=== PATIENT | female | born 1965 | race Caucasian/White ===

== ENCOUNTER 2016-09-24 12:56 | Inpatient (IN) | payer MEDICAID ==
[~2016-09-24] VITALS: Ht 182.9 cm; Wt 56.6 kg
[~2016-09-24 12:56] MED LIST: ALBUAER3 IN; DIVA500T7 PO; OXYB15TA12 PO; PROP60CA8 PO; TOPI100T68 PO
[2016-09-24 15:01] LABS: Basophils # (auto) 0 uL; Basophils % (auto) 0.3 % (0.0-2.0); Eosinophils # (auto) 0 uL; Eosinophils % (auto) 0.3 % (0.0-7.0); Hematocrit 35.8 % (36.0-46.0); Hemoglobin 12.1 g/dL (12.2-16.2); Lymphocytes # (auto) 0.8 uL; Lymphocytes % (auto) 14.8 % (10.0-50.0); Mean Corpuscular Hemoglobin 31.1 pg (28.0-32.0); Mean Corpuscular Hgb Conc. 33.7 g/dL (32.0-36.0); Mean Corpuscular Volume 92.3 fL (80.0-100.0); Monocytes # (auto) 0.8 uL; Monocytes % (auto) 15.2 % (0.0-12.0); Neutrophils # (auto) 3.8 uL; Neutrophils % (auto) 69.4 % (37.0-80.0); Platelet Count (auto) 216 10^3/uL (140-450); Red Cell Distribution Width 13.1 % (11.6-16.0); White Blood Cell 5.5 10^3/uL (4.4-10.8)
[2016-09-24 15:15] LABS: Albumin 3.3 g/dL (3.4-5.0); BUN/Creatinine Ratio 26.7; Bilirubin, Total 0.4 mg/dL (0.2-1.0); Calcium 8.6 mg/dL (8.5-10.1); Potassium 3.5 mmol/L (3.5-5.1); Total Protein 7.5 g/dL (6.4-8.2)
[2016-09-24] MEDS ORDERED: SODIUM CHLORIDE 0.9% 1,000 ML IV ONE (18:15)
[2016-09-24 18:48] LABS: Urine Bilirubin Negative (Negative); Urine Blood Negative /uL (Negative); Urine Color Yellow (Yellow); Urine Glucose Normal (Normal); Urine Ketone Negative (Negative); Urine Mucus FEW (None Seen); Urine Nitrite Negative (Negative); Urine RBC 11 /hpf (0 - 4); Urine Squamous Epithelial Cell FEW /hpf (<5); Urine Urobilinogen >12.0 mg/dL (Negative); Urine pH 8.5 (5.0-8.0)
[2016-09-24] MEDS ORDERED: ALBUTEROL SULF 2.5 MG/0.5ML(0.5%) NEB SOLN NEB ONE (19:00)
[2016-09-24] MEDS ORDERED: cefTRIAXone 1GM/50ML D5W 50 ML IV ONE (19:00)
[2016-09-24] MEDS ORDERED: methylPREDNISolone SOD SUCC 125 MG/2 ML VL IV ONE (19:00)
[2016-09-24] MEDS ORDERED: IPRATROPIUM BROM 0.5 MG/2.5ML INH SOL NEB ONE (19:00)
[2016-09-24] MEDS ORDERED: TEMAZEPAM 15 MG CAP PO PRN (21:45)
[2016-09-24] MEDS: SODIUM CHLORIDE 0.9% 1,000 ML IV SCH (21:47)
[2016-09-24] MEDS: PROPRANOLOL HCL 20 MG TAB PO SCH (22:00)
[2016-09-24] MEDS: IPRATROPIUM BROM 0.5 MG/2.5ML INH SOL NEB SCH (22:00)
[2016-09-24] MEDS: ALBUTEROL SULF 2.5 MG/0.5ML(0.5%) NEB SOLN NEB SCH (22:00)
[2016-09-24] MEDS ORDERED: NITROGLYCERIN 0.4 MG SL TAB SL PRN (22:00)
[2016-09-24] MEDS ORDERED: MORPHINE SULF INJ 2 MG/ML SYRINGE 1ML IV PRN (22:00)
[2016-09-24] MEDS ORDERED: LACTULOSE 20Gm/30ML SOLN PO PRN (22:00)
[2016-09-24] MEDS ORDERED: HYDROcodone-ACET 5/325MG TAB PO ONE (22:45)
[2016-09-25] VITALS (7 sets, daily range): BP systolic 92–106; BP diastolic 48–67
[2016-09-25] MEDS: IPRATROPIUM BROM 0.5 MG/2.5ML INH SOL NEB SCH ×6 (02:15→22:15)
[2016-09-25] MEDS: ALBUTEROL SULF 2.5 MG/0.5ML(0.5%) NEB SOLN NEB SCH ×6 (02:16→22:15)
[2016-09-25] MEDS: PRIMIDONE 50 MG TAB PO SCH ×2 (02:30→22:31)
[2016-09-25] MEDS: OXYBUTYNIN CHL 5 MG TAB PO SCH ×3 (02:31→22:33)
[2016-09-25] MEDS: TOPIRAMATE 100 MG TAB PO SCH ×3 (02:31→22:33)
[2016-09-25 05:27] LABS: Basophils # (auto) 0 uL; Basophils % (auto) 0.3 % (0.0-2.0); Eosinophils # (auto) 0 uL; Hematocrit 31.7 % (36.0-46.0); Hemoglobin 10.7 g/dL (12.2-16.2); Lymphocytes # (auto) 0.4 uL; Lymphocytes % (auto) 12.5 % (10.0-50.0); Mean Corpuscular Hemoglobin 30.9 pg (28.0-32.0); Mean Corpuscular Hgb Conc. 33.6 g/dL (32.0-36.0); Mean Corpuscular Volume 91.9 fL (80.0-100.0); Mean Platelet Volume 6.9 fL (7.4-10.4); Monocytes # (auto) 0.2 uL; Monocytes % (auto) 4.4 % (0.0-12.0); Neutrophils % (auto) 82.8 % (37.0-80.0); Platelet Count (auto) 165 10^3/uL (140-450); Red Cell Distribution Width 13.1 % (11.6-16.0); White Blood Cell 3.6 10^3/uL (4.4-10.8)
[2016-09-25 05:44] LABS: Albumin 2.9 g/dL (3.4-5.0); BUN/Creatinine Ratio 23.1; Bilirubin, Total 0.4 mg/dL (0.2-1.0); Calcium 8.5 mg/dL (8.5-10.1); Potassium 3.5 mmol/L (3.5-5.1); Total Protein 6.7 g/dL (6.4-8.2)
[2016-09-25] MEDS: SODIUM CHLORIDE 0.9% 1,000 ML IV SCH (06:00)
[2016-09-25] MEDS ORDERED: PRIMIDONE 50 MG TAB PO ONE (06:45)
[2016-09-25] MEDS ORDERED: PROP60CA8 PO (06:51)
[2016-09-25] MEDS ORDERED: INFLUENZA QUAD 2016-2017 0.5 ML SYRG IM ONE (08:15)
[2016-09-25] MEDS ORDERED: PNEUMOCOCCAL VACC POLYS 25 MCG/0.5 ML VIAL IM ONE (08:15)
[2016-09-25] MEDS: cefTRIAXone 1GM/50ML D5W 50 ML IV SCH (09:00)
[2016-09-25] MEDS: ENOXAPARIN SOD 40 MG/0.4 ML SYRINGE SC SCH (09:13)
[2016-09-25] MEDS: PANTOPRAZOLE 40 MG TAB PO SCH (09:14)
[2016-09-25] MEDS: FLUoxetine HCL 20 MG CAP PO SCH ×2 (09:14→22:32)
[2016-09-25] MEDS: PROPRANOLOL HCL 20 MG TAB PO SCH ×2 (09:15→22:31)
[2016-09-25] MEDS ORDERED: FLUoxetine HCL 20 MG CAP PO SCH (10:00)
[2016-09-25] MEDS ORDERED: methylPREDNISolone SOD SUCC 125 MG/2 ML VL IV SCH (10:00)
[2016-09-25] MEDS ORDERED: ENOXAPARIN SOD 30 MG/0.3 ML SYRINGE SC SCH (10:00)
[2016-09-25] MEDS ORDERED: TOPIRAMATE 100 MG TAB PO ONE (10:00)
[2016-09-25] MEDS ORDERED: PANTOPRAZOLE SODIUM 40 MG/10 ML VIAL IV SCH (10:00)
[2016-09-25] MEDS: HYDROcodone-ACET 5/325MG TAB PO PRN ×3 (10:25→22:32)
[2016-09-25] MEDS ORDERED: PROPRANOLOL HCL 20 MG TAB PO ONE (14:00)
[2016-09-25] MEDS: methylPREDNISolone SOD SUCC 125 MG/2 ML VL IV SCH (17:30)
[2016-09-25] MEDS ORDERED: TEMAZEPAM 15 MG CAP PO ONE (22:00)
[2016-09-25] MEDS ORDERED: MIRTAZAPINE 30 MG TAB PO SCH (22:00)
[2016-09-25] MEDS: BUDESONIDE (INHALATION) 0.5 MG/2 ML NEB NEB SCH (22:15)
[2016-09-26] MEDS: methylPREDNISolone SOD SUCC 125 MG/2 ML VL IV SCH ×4 (00:40→17:53)
[2016-09-26] MEDS: ALBUTEROL SULF 2.5 MG/0.5ML(0.5%) NEB SOLN NEB SCH ×5 (02:36→19:23)
[2016-09-26] MEDS: IPRATROPIUM BROM 0.5 MG/2.5ML INH SOL NEB SCH ×5 (02:36→19:23)
[2016-09-26 05:00] VITALS: BP 115/47
[2016-09-26] MEDS: HYDROcodone-ACET 5/325MG TAB PO PRN ×2 (06:36→12:23)
[2016-09-26] MEDS: cefTRIAXone 1GM/50ML D5W 50 ML IV SCH (08:57)
[2016-09-26] MEDS: ENOXAPARIN SOD 40 MG/0.4 ML SYRINGE SC SCH (09:28)
[2016-09-26] MEDS: OXYBUTYNIN CHL 5 MG TAB PO SCH (09:35)
[2016-09-26] MEDS: FLUoxetine HCL 20 MG CAP PO SCH (09:35)
[2016-09-26] MEDS: TOPIRAMATE 100 MG TAB PO SCH (09:35)
[2016-09-26] MEDS: PANTOPRAZOLE 40 MG TAB PO SCH (09:35)
[2016-09-26] MEDS: PROPRANOLOL HCL 20 MG TAB PO SCH (10:00)
[2016-09-26] MEDS: BUDESONIDE (INHALATION) 0.5 MG/2 ML NEB NEB SCH (10:04)
[2016-09-26 12:47] VITALS: BP 94/57
[2016-09-26 16:59] VITALS: BP 126/69
[2016-09-26 17:00] VITALS: BP 96/64
== END 2016-09-26 20:05 | disposition home or self-care (01) | DRG 140 ==
LOC: ER 12:59 → TELE 13:00 → ER 18:32 → TELE-WESTW 23:15
PROVIDERS: ADMIT Family Medicine; ATTEND Hospitalist
DX: J44.0 Chronic obstructive pulmonary disease with (acute) lower respiratory infection (principal); J18.9 Pneumonia, unspecified organism; I10 Essential (primary) hypertension; F41.9 Anxiety disorder, unspecified; F32.9 Major depressive disorder, single episode, unspecified; E86.0 Dehydration; F17.210 Nicotine dependence, cigarettes, uncomplicated; G40.909 Epilepsy, unspecified, not intractable, without status epilepticus; J20.9 Acute bronchitis, unspecified; J44.1 Chronic obstructive pulmonary disease with (acute) exacerbation; Z82.49 Family history of ischemic heart disease and other diseases of the circulatory system; Z90.49 Acquired absence of other specified parts of digestive tract; Z98.890 Other specified postprocedural states; Z23 Encounter for immunization
CPT/HCPCS: 36415; 71010; 71020; 80053; 80061; 80320; 81001; 82962; 84484; 85025; 87040; 87400; 93005; 94640; 99291; G0434; J0696

== ENCOUNTER 2016-12-22 12:34 | Emergency (ER) | payer MEDICAID ==
[~2016-12-22] VITALS: Ht 182.9 cm; Wt 78.9 kg
[2016-12-22] MEDS ORDERED: LORazepam 2MG/ML-1ML VIAL IV ONE (15:45)
[2016-12-22] MEDS ORDERED: SODIUM CHLORIDE 0.9% 1,000 ML IV ONE (16:00)
[2016-12-22 16:06] LABS: Hematocrit 38.6 % (36.0-46.0); Mean Corpuscular Hemoglobin 29.8 pg (28.0-32.0); Mean Corpuscular Hgb Conc. 33.8 g/dL (32.0-36.0); Mean Corpuscular Volume 88.2 fL (80.0-100.0); Mean Platelet Volume 9.5 fL (7.4-10.4); Platelet Count (auto) 136 10^3/uL (140-450); Red Cell Distribution Width 15.1 % (11.6-16.0); SUSPECT VIEW TRANSMISSION
[2016-12-22 16:23] LABS: Albumin 3.5 g/dL (3.4-5.0); BUN/Creatinine Ratio 33.3; Calcium 8.8 mg/dL (8.5-10.1); Potassium 3.8 mmol/L (3.5-5.1)
[2016-12-22 16:26] LABS: Bilirubin, Total 0.4 mg/dL (0.2-1.0); Total Protein 6.8 g/dL (6.4-8.2)
[2016-12-22 16:54] LABS: Metamyelocytes % 0; Myelocytes % 0; Promyelocytes % 0; Reactive Lymphocytes 0
[2016-12-22 17:36] VITALS: BP 123/78
[2016-12-22 18:54] LABS: Platelet Estimate Decreased
[2016-12-22 18:55] LABS: RBC Morphology Normal
== END 2016-12-22 17:45 | disposition left against medical advice (07) ==
LOC: ER 12:35
DX: G40.909 Epilepsy, unspecified, not intractable, without status epilepticus (principal); F17.210 Nicotine dependence, cigarettes, uncomplicated; J44.9 Chronic obstructive pulmonary disease, unspecified; I10 Essential (primary) hypertension
CPT/HCPCS: 36415; 70450; 80053; 80164; 85007; 85027; 96361; 96374; 99285; J2060; J7030

== ENCOUNTER 2016-12-23 19:08 | Emergency (ER) | payer MEDICAID ==
[~2016-12-23] VITALS: Ht 182.9 cm; Wt 77.1 kg
[2016-12-23 21:53] LABS: Albumin 3.5 g/dL (3.4-5.0); BUN/Creatinine Ratio 35.1; Calcium 8.6 mg/dL (8.5-10.1); Potassium 3.3 mmol/L (3.5-5.1)
[2016-12-23 21:56] LABS: Bilirubin, Total 0.5 mg/dL (0.2-1.0); Total Protein 7.1 g/dL (6.4-8.2)
[2016-12-23 22:00] LABS: Basophils # (auto) 0 uL; Basophils % (auto) 0.5 % (0.0-2.0); Eosinophils # (auto) 0 uL; Eosinophils % (auto) 1.2 % (0.0-7.0); Hematocrit 38.5 % (36.0-46.0); Hemoglobin 12.7 g/dL (12.2-16.2); Lymphocytes # (auto) 1.7 uL; Lymphocytes % (auto) 49.9 % (10.0-50.0); Mean Platelet Volume 8.9 fL (7.4-10.4); Monocytes # (auto) 0.3 uL; Monocytes % (auto) 8.9 % (0.0-12.0); Neutrophils # (auto) 1.4 uL; Neutrophils % (auto) 39.5 % (37.0-80.0); Platelet Count (auto) 113 10^3/uL (140-450); Red Cell Distribution Width 14.6 % (11.6-16.0); White Blood Cell 3.5 10^3/uL (4.4-10.8)
[2016-12-24] MEDS ORDERED: SODIUM CHLORIDE 0.9% 1,000 ML IV ONE (07:14)
[2016-12-24] MEDS ORDERED: ACETAMINOPHEN 500 MG TAB PO ONE (07:15)
[2016-12-24 10:41] VITALS: BP 114/72
== END 2016-12-24 11:48 | disposition home or self-care (01) ==
LOC: ER 19:10
DX: G40.909 Epilepsy, unspecified, not intractable, without status epilepticus (principal); J44.9 Chronic obstructive pulmonary disease, unspecified; I10 Essential (primary) hypertension; R42 Dizziness and giddiness; R53.1 Weakness; F17.210 Nicotine dependence, cigarettes, uncomplicated; E87.6 Hypokalemia; Z91.14 Patient's other noncompliance with medication regimen; Z90.49 Acquired absence of other specified parts of digestive tract
CPT/HCPCS: 36415; 80053; 80164; 83735; 85025; 96360; 99284; J7030

== ENCOUNTER → 2016-12-23 | Emergency (ER) | payer MEDICAID ==
[~2016-12-23] VITALS: Ht 185.4 cm; Wt 77.1 kg
[2016-12-23 10:55] VITALS: BP 109/60
[2016-12-23 11:23] LABS: Basophils # (auto) 0 uL; Basophils % (auto) 0.4 % (0.0-2.0); Eosinophils # (auto) 0 uL; Eosinophils % (auto) 0.9 % (0.0-7.0); Lymphocytes # (auto) 1.3 uL; Lymphocytes % (auto) 36.9 % (10.0-50.0); Mean Corpuscular Hemoglobin 29.4 pg (28.0-32.0); Mean Corpuscular Hgb Conc. 33.3 g/dL (32.0-36.0); Mean Corpuscular Volume 88.5 fL (80.0-100.0); Mean Platelet Volume 8.4 fL (7.4-10.4); Monocytes # (auto) 0.3 uL; Monocytes % (auto) 8.3 % (0.0-12.0); Neutrophils # (auto) 1.9 uL; Neutrophils % (auto) 53.5 % (37.0-80.0); Platelet Count (auto) 115 10^3/uL (140-450); Red Cell Distribution Width 14.9 % (11.6-16.0); White Blood Cell 3.5 10^3/uL (4.4-10.8)
[2016-12-23 11:45] LABS: Albumin 3.7 g/dL (3.4-5.0); BUN/Creatinine Ratio 30.9; Bilirubin, Total 0.3 mg/dL (0.2-1.0); Calcium 8.8 mg/dL (8.5-10.1); Magnesium 2.1 mg/dL (1.6-2.6); Potassium 3.8 mmol/L (3.5-5.1); Total Protein 7.5 g/dL (6.4-8.2)
== END | disposition left against medical advice (07) ==
LOC: ER 10:50
DX: R56.9 Unspecified convulsions (principal); Z53.21 Procedure and treatment not carried out due to patient leaving prior to being seen by health care provider
CPT/HCPCS: 36415; 80053; 83735; 85025

== ENCOUNTER 2016-12-24 19:54 | Inpatient (IN) | payer MEDICAID ==
[~2016-12-24] VITALS: Ht 167.6 cm; Wt 68.2 kg
[2016-12-24 20:33] LABS: Basophils # (auto) 0 uL; Basophils % (auto) 0.8 % (0.0-2.0); DEFINITIVE VIEW TRANSMISSION; Eosinophils # (auto) 0.1 uL; Eosinophils % (auto) 1.8 % (0.0-7.0); Hematocrit 36.3 % (36.0-46.0); Lymphocytes # (auto) 1.5 uL; Lymphocytes % (auto) 54.7 % (10.0-50.0); Mean Corpuscular Hemoglobin 29.4 pg (28.0-32.0); Mean Corpuscular Hgb Conc. 33.2 g/dL (32.0-36.0); Mean Corpuscular Volume 88.7 fL (80.0-100.0); Mean Platelet Volume 8.5 fL (7.4-10.4); Monocytes # (auto) 0.3 uL; Monocytes % (auto) 11.6 % (0.0-12.0); Neutrophils # (auto) 0.9 uL; Neutrophils % (auto) 31.1 % (37.0-80.0); Platelet Count (auto) 107 10^3/uL (140-450); Red Cell Distribution Width 14.7 % (11.6-16.0); White Blood Cell 2.8 10^3/uL (4.4-10.8)
[2016-12-24 20:59] LABS: Albumin 3.3 g/dL (3.4-5.0); Alkaline Phosphatase 87 U/L (45-117); Anion Gap 7 (5-15); Aspartate Aminotransferase 104 U/L (15-37); BUN/Creatinine Ratio 20.5; Bilirubin, Total 0.3 mg/dL (0.2-1.0); Blood Urea Nitrogen 18 mg/dL (7-18); Calcium 8.4 mg/dL (8.5-10.1); Carbon Dioxide 24 mmol/L (21-32); Chloride 117 mmol/L (98-107); GFR African American 87 mL/min; GFR Non-African American 72 mL/min; Glucose 101 mg/dL (74-106); Magnesium 2.1 mg/dL (1.6-2.6); Potassium 3.5 mmol/L (3.5-5.1); Sodium 148 mmol/L (136-145); Total Protein 6.5 g/dL (6.4-8.2)
[2016-12-24] MEDS ORDERED: SODIUM CHLORIDE 0.9% 1,000 ML IVB ONE (21:00)
[2016-12-25 05:19] LABS: Urine Bilirubin Negative (Negative); Urine Blood Negative /uL (Negative); Urine Color Yellow (Yellow); Urine Glucose Normal (Normal); Urine Ketone Negative (Negative); Urine Mucus FEW (None Seen); Urine Nitrite Negative (Negative); Urine RBC 2 /hpf (0 - 4)
[2016-12-25] MEDS ORDERED: ALBUTEROL SULF 2.5 MG/0.5ML(0.5%) NEB SOLN NEB PRN (05:45)
[2016-12-25] MEDS ORDERED: ONDANSETRON HCL 4 MG/2 ML VIAL IV PRN (05:45)
[2016-12-25] MEDS ORDERED: ACETAMINOPHEN 325 MG TAB PO PRN (05:45)
[2016-12-25] MEDS ORDERED: TEMAZEPAM 15 MG CAP PO PRN (05:45)
[2016-12-25] MEDS: D5W/SOD CHL 0.45% 1,000 ML IV SCH (05:58)
[2016-12-25] MEDS: PROPRANOLOL HCL 20 MG TAB PO SCH ×3 (06:02→21:49)
[2016-12-25 09:00] VITALS: BP 110/66
[2016-12-25] MEDS: ENOXAPARIN SOD 40 MG/0.4 ML SYRINGE SC SCH (10:00)
[2016-12-25] MEDS: FAMOTIDINE 20 MG TAB PO SCH ×2 (12:41→21:51)
[2016-12-25] MEDS: FLUoxetine HCL 20 MG CAP PO SCH (12:41)
[2016-12-25] MEDS: TOPIRAMATE 100 MG TAB PO SCH ×2 (12:41→21:51)
[2016-12-25 13:00] VITALS: BP 117/53
[2016-12-25] MEDS: HYDROcodone-ACET 5/325MG TAB PO PRN (13:27)
[2016-12-25 17:00] VITALS: BP 102/67
[2016-12-25 20:59] VITALS: BP 102/67
[2016-12-26] MEDS: D5W/SOD CHL 0.45% 1,000 ML IV SCH (00:17)
[2016-12-26] MEDS: HYDROcodone-ACET 5/325MG TAB PO PRN (02:46)
[2016-12-26 05:00] VITALS: BP 93/59
[2016-12-26] MEDS: PROPRANOLOL HCL 20 MG TAB PO SCH ×2 (06:00→14:00)
[2016-12-26 06:18] LABS: Basophils # (auto) 0 uL; Basophils % (auto) 0.4 % (0.0-2.0); Eosinophils # (auto) 0 uL; Eosinophils % (auto) 0.5 % (0.0-7.0); Hematocrit 34.3 % (36.0-46.0); Hemoglobin 11.4 g/dL (12.2-16.2); Lymphocytes # (auto) 1.6 uL; Lymphocytes % (auto) 30.1 % (10.0-50.0); Mean Corpuscular Hemoglobin 29.4 pg (28.0-32.0); Mean Corpuscular Hgb Conc. 33.3 g/dL (32.0-36.0); Mean Corpuscular Volume 88.5 fL (80.0-100.0); Monocytes # (auto) 0.7 uL; Monocytes % (auto) 12.8 % (0.0-12.0); Neutrophils % (auto) 56.2 % (37.0-80.0); Platelet Count (auto) 105 10^3/uL (140-450); Red Cell Distribution Width 14.8 % (11.6-16.0); White Blood Cell 5.4 10^3/uL (4.4-10.8)
[2016-12-26 06:53] LABS: Albumin 2.8 g/dL (3.4-5.0); BUN/Creatinine Ratio 19.1; Bilirubin, Total 0.6 mg/dL (0.2-1.0); Calcium 8.1 mg/dL (8.5-10.1); Magnesium 1.9 mg/dL (1.6-2.6); Phosphorus 2.6 mg/dL (2.5-4.90); Potassium 3.4 mmol/L (3.5-5.1); Total Protein 6.1 g/dL (6.4-8.2)
[2016-12-26 08:00] VITALS: BP 92/47
[2016-12-26 09:07] VITALS: BP 92/47
[2016-12-26] MEDS: FAMOTIDINE 20 MG TAB PO SCH (09:58)
[2016-12-26] MEDS: TOPIRAMATE 100 MG TAB PO SCH (09:58)
[2016-12-26] MEDS: ENOXAPARIN SOD 40 MG/0.4 ML SYRINGE SC SCH (09:58)
[2016-12-26] MEDS: FLUoxetine HCL 20 MG CAP PO SCH (09:58)
[2016-12-26 12:40] VITALS: BP 117/76
[2016-12-26] MEDS ORDERED: TOPI25TA84 PO (15:59)
[2016-12-26 16:09] VITALS: BP 117/76
[2016-12-26 16:33] VITALS: BP 117/64
== END 2016-12-26 18:50 | disposition home health service (06) | DRG 53 ==
LOC: EDBD 19:54 → ER 19:59 → OVERFLOW 20:00 → CENTRAL 12-25 09:00
PROVIDERS: ADMIT Nurse Practitioner; ATTEND Internal Medicine
DX: G40.909 Epilepsy, unspecified, not intractable, without status epilepticus (principal); G92 Toxic encephalopathy; E87.0 Hyperosmolality and hypernatremia; D69.6 Thrombocytopenia, unspecified; D50.9 Iron deficiency anemia, unspecified; F17.210 Nicotine dependence, cigarettes, uncomplicated; I10 Essential (primary) hypertension; F32.9 Major depressive disorder, single episode, unspecified; J44.9 Chronic obstructive pulmonary disease, unspecified; E16.2 Hypoglycemia, unspecified; Z91.19 Patient's noncompliance with other medical treatment and regimen; D53.9 Nutritional anemia, unspecified; Z80.3 Family history of malignant neoplasm of breast; Z82.49 Family history of ischemic heart disease and other diseases of the circulatory system; F41.9 Anxiety disorder, unspecified; Z90.49 Acquired absence of other specified parts of digestive tract; Z80.9 Family history of malignant neoplasm, unspecified; Z88.6 Allergy status to analgesic agent; Z88.8 Allergy status to other drugs, medicaments and biological substances; R32 Unspecified urinary incontinence
CPT/HCPCS: 36415; 51702; 70450; 70551; 71010; 80053; 80164; 80320; 81001; 82962; 83735; 84100; 84484; 84702; 85025; 93005; 94761; 96360; G0434

== ENCOUNTER 2017-03-21 18:53 | Emergency (ER) | payer MEDICAID ==
[~2017-03-21] VITALS: Ht 182.9 cm; Wt 90.7 kg
[~2017-03-21 18:53] MED LIST changes: -TOPI100T68 PO; +TOPI25TA84 PO
[2017-03-21 22:47] LABS: Basophils # (auto) 0 uL; Basophils % (auto) 0.5 % (0.0-2.0); CONDITION Y; Eosinophils # (auto) 0 uL; Eosinophils % (auto) 0.2 % (0.0-7.0); Hematocrit 43.5 % (36.0-46.0); Hemoglobin 14.5 g/dL (12.2-16.2); Lymphocytes # (auto) 2.2 uL; Lymphocytes % (auto) 34.5 % (10.0-50.0); Mean Corpuscular Hemoglobin 29.8 pg (28.0-32.0); Mean Corpuscular Hgb Conc. 33.4 g/dL (32.0-36.0); Mean Corpuscular Volume 89.4 fL (80.0-100.0); Mean Platelet Volume 8.9 fL (7.4-10.4); Monocytes # (auto) 0.7 uL; Monocytes % (auto) 10.3 % (0.0-12.0); Neutrophils # (auto) 3.5 uL; Neutrophils % (auto) 54.5 % (37.0-80.0); Platelet Count (auto) 145 10^3/uL (140-450); Red Cell Distribution Width 16.1 % (11.6-16.0); White Blood Cell 6.4 10^3/uL (4.4-10.8)
[2017-03-21 23:09] LABS: Albumin 3.6 g/dL (3.4-5.0); BUN/Creatinine Ratio 26.4; Calcium 9.2 mg/dL (8.5-10.1); Potassium 5.1 mmol/L (3.5-5.1)
[2017-03-21 23:12] LABS: Bilirubin, Total 0.6 mg/dL (0.2-1.0); Total Protein 7.7 g/dL (6.4-8.2)
[2017-03-22 05:53] VITALS: BP 88/52
== END 2017-03-22 06:10 | disposition home or self-care (01) ==
LOC: ER 18:55
DX: S93.401A Sprain of unspecified ligament of right ankle, initial encounter (principal); I10 Essential (primary) hypertension; F17.210 Nicotine dependence, cigarettes, uncomplicated; Z90.49 Acquired absence of other specified parts of digestive tract; Z88.2 Allergy status to sulfonamides; W19.XXXA Unspecified fall, initial encounter; Y93.89 Activity, other specified; Y99.8 Other external cause status; Y92.89 Other specified places as the place of occurrence of the external cause
CPT/HCPCS: 36415; 73610; 80053; 85025

== ENCOUNTER 2017-09-20 17:49 | Inpatient (IN) | payer MEDICAID ==
[~2017-09-20] VITALS: Ht 185.4 cm; Wt 77.6 kg
[2017-09-20 21:06] LABS: Alanine Aminotransferase 39 U/L (13-56); Albumin 3.5 g/dL (3.4-5.0); Anion Gap 6 (5-15); Aspartate Aminotransferase 40 U/L (15-37); BUN/Creatinine Ratio 30.6; Blood Urea Nitrogen 30 mg/dL (7-18); Calcium 8.8 mg/dL (8.5-10.1); Carbon Dioxide 29 mmol/L (21-32); Chloride 108 mmol/L (98-107); GFR African American 76 mL/min; GFR Non-African American 63 mL/min; Glucose 107 mg/dL (74-106); Potassium 3.9 mmol/L (3.5-5.1); Sodium 143 mmol/L (136-145)
[2017-09-20 21:08] LABS: Basophils # (auto) 0 uL; Basophils % (auto) 0.6 % (0.0-2.0); Eosinophils # (auto) 0.1 uL; Eosinophils % (auto) 1.1 % (0.0-7.0); Hematocrit 41.4 % (36.0-46.0); Hemoglobin 13.9 g/dL (12.2-16.2); Lymphocytes # (auto) 1.8 uL; Lymphocytes % (auto) 32.9 % (10.0-50.0); Mean Corpuscular Hgb Conc. 33.7 g/dL (32.0-36.0); Mean Corpuscular Volume 92.2 fL (80.0-100.0); Monocytes # (auto) 0.7 uL; Monocytes % (auto) 12.7 % (0.0-12.0); Neutrophils # (auto) 2.9 uL; Neutrophils % (auto) 52.7 % (37.0-80.0); Nucleated Red Blood Cells % 0.1 %; Platelet Count (auto) 173 10^3/uL (140-450); Red Blood Cells 4.49 10^6/uL (4.0-5.20); Red Cell Distribution Width 14.8 % (11.8-14.3); White Blood Cell 5.5 10^3/uL (4.4-10.8)
[2017-09-20 21:11] LABS: Alkaline Phosphatase 74 U/L (45-117); Bilirubin, Total 0.4 mg/dL (0.2-1.0); Total Protein 7.2 g/dL (6.4-8.2)
[2017-09-21] MEDS ORDERED: cefTRIAXone 1GM/10ml IVPUSH 10 ML IV ONE (05:00)
[2017-09-21] MEDS ORDERED: VANCOMYCIN 1GM/250ML 250 ML IV ONE (05:00)
[2017-09-21] MEDS ORDERED: SODIUM CHLORIDE 0.9% 1,000 ML IV ONE (05:00)
[2017-09-21 06:21] LABS: Urine Bacteria NONE SEEN /hpf (None Seen); Urine Blood Negative /uL (Negative); Urine Mucus MANY (None Seen); Urine Specific Gravity 1.028 (1.001-1.035); Urine WBC 152 /hpf (0 - 5)
[2017-09-21 06:34] LABS: Alcohol, Urine < 3.0 mg/dL (0-5); Amphetamine Screen, Urine POSITIVE (NEGATIVE); Barbiturate Scree,Urine POSITIVE (NEGATIVE); Benzodiazephine Screen, Urine NEGATIVE (NEGATIVE); Cannabinoid Screen, Urine NEGATIVE (NEGATIVE); Cocaine Screen, Urine POSITIVE (NEGATIVE); Opiate Scree,Urine NEGATIVE (NEGATIVE); Phencyclidine Screen, Urine NEGATIVE (NEGATIVE)
[2017-09-21] MEDS ORDERED: HYDROcodone-ACET 5/325MG TAB PO PRN (07:15)
[2017-09-21] MEDS ORDERED: LORazepam 2MG/ML-1ML VIAL IV PRN (07:15)
[2017-09-21] MEDS ORDERED: SODIUM CHLORIDE 0.9% 1,000 ML IV SCH ×2 (07:15→11:45)
[2017-09-21] MEDS ORDERED: VANCOMYCIN PER PHARMACY 0 MG IV SCH (07:15)
[2017-09-21] MEDS ORDERED: ACETAMINOPHEN 500 MG TAB PO PRN (07:15)
[2017-09-21] MEDS ORDERED: VANCOMYCIN 1GM/250ML 250 ML IV SCH ×2 (08:00→18:00)
[2017-09-21 09:24] LABS: Albumin 3.1 g/dL (3.4-5.0); BUN/Creatinine Ratio 32.6; Bilirubin, Total 0.3 mg/dL (0.2-1.0); Total Protein 6.3 g/dL (6.4-8.2)
[2017-09-21] MEDS ORDERED: TOPIRAMATE 100 MG TAB PO SCH (10:00)
[2017-09-21] MEDS: FLUoxetine HCL 20 MG CAP PO SCH (10:11)
[2017-09-21] MEDS ORDERED: LORazepam 2MG/ML-1ML VIAL ONE (10:48)
[2017-09-21 18:52] VITALS: BP 106/67
[2017-09-21] MEDS ORDERED: PNEUMOCOCCAL VACC POLYS 25 MCG/0.5 ML VIAL IM ONE (22:00)
[2017-09-21] MEDS ORDERED: INFLUENZA QUAD 2017-2018 0.5 ML SYRG IM ONE (22:00)
[2017-09-21] MEDS: TOPIRAMATE 100 MG TAB PO SCH (22:17)
[2017-09-21] MEDS: PROPRANOLOL HCL 20 MG TAB PO SCH (22:18)
[2017-09-21] MEDS: MIRTAZAPINE 30 MG TAB PO SCH (22:19)
[2017-09-21] MEDS: chlordiazePOXIDE HCL 5 MG CAP PO SCH (22:19)
[2017-09-21 22:35] VITALS: BP 115/72
[2017-09-22] MEDS: chlordiazePOXIDE HCL 5 MG CAP PO SCH ×3 (05:44→22:17)
[2017-09-22 05:47] VITALS: BP 102/65
[2017-09-22] MEDS: PROPRANOLOL HCL 20 MG TAB PO SCH ×3 (05:47→22:24)
[2017-09-22 08:00] VITALS: BP 98/36
[2017-09-22 09:00] VITALS: BP 98/36
[2017-09-22] MEDS ORDERED: cefTRIAXone 1GM/10ml IVPUSH 10 ML IV SCH (09:00)
[2017-09-22] MEDS: TOPIRAMATE 100 MG TAB PO SCH ×2 (10:10→22:17)
[2017-09-22] MEDS: FLUoxetine HCL 20 MG CAP PO SCH (10:10)
[2017-09-22] MEDS ORDERED: THIAMINE INJ 100 MG, MULTIPLE VITAMIN 10 ML, FOLIC ACID 1 MG, MAGNESIUM SULF SDV 50% 8 ... IV SCH ×5 (12:00)
[2017-09-22 13:00] VITALS: BP 101/68
[2017-09-22] MEDS ORDERED: CIPR-173 PO (15:34)
[2017-09-22] MEDS ORDERED: MULTTAB99 PO (15:34)
[2017-09-22] MEDS ORDERED: MIR30T PO (15:34)
[2017-09-22] MEDS ORDERED: FLUO20CA90 PO (15:34)
[2017-09-22] MEDS ORDERED: TOPI25TA84 PO (15:36)
[2017-09-22] MEDS ORDERED: PROP60CA8 PO (15:36)
[2017-09-22] MEDS ORDERED: DIVA500T7 PO (15:36)
[2017-09-22] MEDS: CIPROFLOXACIN HCL 500 MG TAB PO SCH ×2 (16:33→22:16)
[2017-09-22 17:38] VITALS: BP_SYST 141; BP_SYST 88; BP_DIAS 52; BP_DIAS 54
[2017-09-22 22:00] VITALS: BP 102/62
[2017-09-22] MEDS: MIRTAZAPINE 30 MG TAB PO SCH (22:16)
[2017-09-23 05:00] VITALS: BP_SYST 8; BP_SYST 94; BP_DIAS 55
[2017-09-23] MEDS: chlordiazePOXIDE HCL 5 MG CAP PO SCH ×2 (05:41→14:58)
[2017-09-23] MEDS: PROPRANOLOL HCL 20 MG TAB PO SCH ×2 (05:41→14:57)
[2017-09-23 08:00] VITALS: BP 97/51
[2017-09-23 09:00] VITALS: BP 97/51
[2017-09-23] MEDS ORDERED: MULTIPLE VITAMIN TAB PO SCH (10:00)
[2017-09-23 13:00] VITALS: BP 101/61
[2017-09-23] MEDS: FLUoxetine HCL 20 MG CAP PO SCH (13:00)
[2017-09-23] MEDS: CIPROFLOXACIN HCL 500 MG TAB PO SCH (13:00)
[2017-09-23] MEDS: TOPIRAMATE 100 MG TAB PO SCH (13:00)
[2017-09-23 16:54] VITALS: BP 100/56
[2017-09-23 17:19] VITALS: BP 100/56
== END 2017-09-23 17:19 | disposition home or self-care (01) | DRG 383 ==
LOC: ER 17:49 → EDBD 17:49 → OVERFLOW 17:50 → WEST WING 09-21 17:28
PROVIDERS: ADMIT Nurse Practitioner Family; ATTEND Hospitalist
DX: L03.317 Cellulitis of buttock (principal); G93.41 Metabolic encephalopathy; N39.0 Urinary tract infection, site not specified; I10 Essential (primary) hypertension; L02.31 Cutaneous abscess of buttock; F13.10 Sedative, hypnotic or anxiolytic abuse, uncomplicated; F32.9 Major depressive disorder, single episode, unspecified; F10.20 Alcohol dependence, uncomplicated; F17.210 Nicotine dependence, cigarettes, uncomplicated; G40.909 Epilepsy, unspecified, not intractable, without status epilepticus; J44.9 Chronic obstructive pulmonary disease, unspecified; F41.9 Anxiety disorder, unspecified; F19.10 Other psychoactive substance abuse, uncomplicated; F14.10 Cocaine abuse, uncomplicated; F15.10 Other stimulant abuse, uncomplicated; Z71.51 Drug abuse counseling and surveillance of drug abuser; Z59.0 Homelessness; Z82.49 Family history of ischemic heart disease and other diseases of the circulatory system; Z88.8 Allergy status to other drugs, medicaments and biological substances; Z79.899 Other long term (current) drug therapy; Z90.49 Acquired absence of other specified parts of digestive tract; Z80.3 Family history of malignant neoplasm of breast; Z23 Encounter for immunization
CPT/HCPCS: 36415; 80053; 80307; 81001; 83735; 84484; 85025; 87040; 87086; 87088; 87186; 93005; 96365; 96366; 96375

== ENCOUNTER 2017-09-24 19:15 | Emergency (ER) | payer MEDICAID ==
[~2017-09-24] VITALS: Ht 182.9 cm; Wt 81.6 kg
[~2017-09-24 19:15] MED LIST changes: +CIPR-173 PO; +FLUO20CA90 PO; +MIR30T PO; +MULTTAB99 PO
[2017-09-24 20:22] LABS: Basophils # (auto) 0.1 uL; Eosinophils # (auto) 0.1 uL; Eosinophils % (auto) 1.9 % (0.0-7.0); Hematocrit 43.8 % (36.0-46.0); Hemoglobin 14.9 g/dL (12.2-16.2); Lymphocytes # (auto) 2.2 uL; Lymphocytes % (auto) 36.8 % (10.0-50.0); Mean Corpuscular Hemoglobin 31.4 pg (28.0-32.0); Mean Corpuscular Volume 92.4 fL (80.0-100.0); Monocytes # (auto) 0.7 uL; Monocytes % (auto) 11.2 % (0.0-12.0); Neutrophils % (auto) 49.1 % (37.0-80.0); Platelet Count (auto) 196 10^3/uL (140-450); Red Blood Cells 4.74 10^6/uL (4.0-5.20); Red Cell Distribution Width 14.2 % (11.8-14.3); White Blood Cell 6.1 10^3/uL (4.4-10.8)
[2017-09-24 20:29] LABS: Urine Bacteria NONE SEEN /hpf (None Seen); Urine Blood TRACE /uL (Negative); Urine Mucus FEW (None Seen); Urine Specific Gravity 1.025 (1.001-1.035); Urine WBC 5 /hpf (0 - 5)
[2017-09-24 20:42] LABS: Albumin 4.1 g/dL (3.4-5.0); BUN/Creatinine Ratio 21.2; Bilirubin, Total 0.5 mg/dL (0.2-1.0); Calcium 9.2 mg/dL (8.5-10.1); Potassium 3.4 mmol/L (3.5-5.1); Total Protein 8.4 g/dL (6.4-8.2)
[2017-09-24 20:55] VITALS: BP 109/64
== END 2017-09-24 22:04 | disposition home or self-care (01) ==
LOC: ER 19:15
DX: K52.9 Noninfective gastroenteritis and colitis, unspecified (principal); N39.0 Urinary tract infection, site not specified; B37.3 Candidiasis of vulva and vagina; J44.9 Chronic obstructive pulmonary disease, unspecified; I10 Essential (primary) hypertension; F17.210 Nicotine dependence, cigarettes, uncomplicated; Z59.0 Homelessness; Z90.49 Acquired absence of other specified parts of digestive tract; Z88.6 Allergy status to analgesic agent
CPT/HCPCS: 36415; 80053; 81001; 82150; 83690; 85025; 93005

== ENCOUNTER 2017-09-29 13:39 | Emergency (ER) | payer MEDICAID ==
[~2017-09-29] VITALS: Ht 182.9 cm; Wt 77.1 kg
[2017-09-29 15:15] LABS: Basophils # (auto) 0 uL; Basophils % (auto) 0.7 % (0.0-2.0); Eosinophils # (auto) 0.1 uL; Hematocrit 44.4 % (36.0-46.0); Hemoglobin 14.8 g/dL (12.2-16.2); Lymphocytes # (auto) 2.2 uL; Lymphocytes % (auto) 36.3 % (10.0-50.0); Mean Corpuscular Hemoglobin 30.7 pg (28.0-32.0); Mean Corpuscular Hgb Conc. 33.4 g/dL (32.0-36.0); Mean Corpuscular Volume 91.9 fL (80.0-100.0); Monocytes # (auto) 0.6 uL; Monocytes % (auto) 9.7 % (0.0-12.0); Neutrophils # (auto) 3.2 uL; Neutrophils % (auto) 52.3 % (37.0-80.0); Nucleated Red Blood Cells % 0.1 %; Platelet Count (auto) 210 10^3/uL (140-450); Red Blood Cells 4.83 10^6/uL (4.0-5.20); Red Cell Distribution Width 13.9 % (11.8-14.3); White Blood Cell 6.1 10^3/uL (4.4-10.8)
[2017-09-29 15:34] LABS: Alanine Aminotransferase 46 U/L (13-56); Albumin 3.7 g/dL (3.4-5.0); Anion Gap 9 (5-15); Aspartate Aminotransferase 43 U/L (15-37); BUN/Creatinine Ratio 21.7; Blood Urea Nitrogen 30 mg/dL (7-18); Calcium 9.1 mg/dL (8.5-10.1); Carbon Dioxide 25 mmol/L (21-32); Chloride 107 mmol/L (98-107); GFR African American 51 mL/min; GFR Non-African American 43 mL/min; Glucose 65 mg/dL (74-106); Sodium 141 mmol/L (136-145)
[2017-09-29 15:39] LABS: Alkaline Phosphatase 103 U/L (45-117); Bilirubin, Total 0.3 mg/dL (0.2-1.0); Total Protein 7.9 g/dL (6.4-8.2)
[2017-09-29] MEDS ORDERED: NALBUPHINE HCL 10 MG/1ml INJECTION IV ONE (23:45)
[2017-09-29] MEDS ORDERED: SODIUM CHLORIDE 0.9% 1,000 ML IV ONE (23:45)
[2017-09-30] MEDS ORDERED: ONDANSETRON HCL 4 MG/2 ML VIAL IV ONE (00:15)
[2017-09-30 01:35] LABS: Urine Bacteria MOD /hpf (None Seen); Urine Blood Negative /uL (Negative); Urine Hyaline Cast FEW /lpf (0 - 2); Urine Mucus FEW (None Seen); Urine Specific Gravity 1.035 (1.001-1.035); Urine WBC 1 /hpf (0 - 5)
[2017-09-30 02:04] LABS: Alcohol, Urine < 3.0 mg/dL (0-5); Amphetamine Screen, Urine NEGATIVE (NEGATIVE); Barbiturate Scree,Urine POSITIVE (NEGATIVE); Benzodiazephine Screen, Urine POSITIVE (NEGATIVE); Cannabinoid Screen, Urine NEGATIVE (NEGATIVE); Cocaine Screen, Urine NEGATIVE (NEGATIVE); Opiate Scree,Urine NEGATIVE (NEGATIVE); Phencyclidine Screen, Urine NEGATIVE (NEGATIVE)
[2017-09-30 02:46] VITALS: BP 80/57
== END 2017-09-30 02:59 | disposition home or self-care (01) ==
LOC: EDBD 13:39 → ER 13:39
DX: K29.70 Gastritis, unspecified, without bleeding (principal); R51 Headache; G40.909 Epilepsy, unspecified, not intractable, without status epilepticus; I10 Essential (primary) hypertension; R42 Dizziness and giddiness; F19.10 Other psychoactive substance abuse, uncomplicated; J44.9 Chronic obstructive pulmonary disease, unspecified; F17.210 Nicotine dependence, cigarettes, uncomplicated; Z59.0 Homelessness; Z90.49 Acquired absence of other specified parts of digestive tract; Z88.8 Allergy status to other drugs, medicaments and biological substances
CPT/HCPCS: 36415; 74176; 80053; 80307; 81001; 83690; 84484; 85025; 93005; 96361; 96374; 96375; 99285; J2300; J2405

== ENCOUNTER 2017-10-01 03:22 | Emergency (ER) | payer MEDICAID ==
[~2017-10-01] VITALS: Ht 182.9 cm; Wt 79.4 kg
[2017-10-01 03:30] VITALS: BP 100/50
[2017-10-01 06:07] LABS: Alcohol, Urine < 3.0 mg/dL (0-5); Amphetamine Screen, Urine NEGATIVE (NEGATIVE); Barbiturate Scree,Urine POSITIVE (NEGATIVE); Benzodiazephine Screen, Urine POSITIVE (NEGATIVE); Cannabinoid Screen, Urine NEGATIVE (NEGATIVE); Cocaine Screen, Urine NEGATIVE (NEGATIVE); Opiate Scree,Urine NEGATIVE (NEGATIVE); Phencyclidine Screen, Urine NEGATIVE (NEGATIVE)
[2017-10-01 06:53] LABS: Urine Blood Negative /uL (Negative); Urine Specific Gravity 1.017 (1.001-1.035)
[2017-10-01 06:54] LABS: Urine Mucus MANY (None Seen); Urine WBC 1 /hpf (0 - 5)
[2017-10-01 06:55] LABS: Urine Bacteria FEW /hpf (None Seen)
[2017-10-01 07:48] LABS: Basophils # (auto) 0 uL; Basophils % (auto) 0.9 % (0.0-2.0); Eosinophils # (auto) 0.1 uL; Eosinophils % (auto) 1.7 % (0.0-7.0); Hematocrit 41.1 % (36.0-46.0); Hemoglobin 13.4 g/dL (12.2-16.2); Lymphocytes # (auto) 2.1 uL; Lymphocytes % (auto) 49.4 % (10.0-50.0); Mean Corpuscular Hemoglobin 30.8 pg (28.0-32.0); Mean Corpuscular Hgb Conc. 32.6 g/dL (32.0-36.0); Mean Corpuscular Volume 94.6 fL (80.0-100.0); Monocytes # (auto) 0.4 uL; Monocytes % (auto) 10.4 % (0.0-12.0); Neutrophils # (auto) 1.6 uL; Neutrophils % (auto) 37.6 % (37.0-80.0); Nucleated Red Blood Cells % 0.2 %; Platelet Count (auto) 131 10^3/uL (140-450); Red Blood Cells 4.34 10^6/uL (4.0-5.20); Red Cell Distribution Width 14.3 % (11.8-14.3); White Blood Cell 4.3 10^3/uL (4.4-10.8)
[2017-10-01 08:14] LABS: Albumin 3.6 g/dL (3.4-5.0); BUN/Creatinine Ratio 16.7; Calcium 8.8 mg/dL (8.5-10.1)
[2017-10-01 08:17] LABS: Bilirubin, Total 0.4 mg/dL (0.2-1.0); Total Protein 7.1 g/dL (6.4-8.2)
== END 2017-10-01 07:42 | disposition left against medical advice (07) ==
LOC: ER 03:24
DX: R11.0 Nausea (principal); R19.7 Diarrhea, unspecified; Z59.0 Homelessness; Z53.21 Procedure and treatment not carried out due to patient leaving prior to being seen by health care provider
CPT/HCPCS: 36415; 80053; 80307; 81001; 85025

== ENCOUNTER 2017-10-01 11:00 | Emergency (ER) | payer MEDICAID ==
[~2017-10-01] VITALS: Ht 182.9 cm; Wt 77.1 kg
[2017-10-01 14:25] VITALS: BP 104/61
== END 2017-10-01 17:03 | disposition home or self-care (01) ==
LOC: ER 11:00
DX: H60.8X1 Other otitis externa, right ear (principal); J44.9 Chronic obstructive pulmonary disease, unspecified; I10 Essential (primary) hypertension; F17.210 Nicotine dependence, cigarettes, uncomplicated; Z59.0 Homelessness; Z90.49 Acquired absence of other specified parts of digestive tract; Z88.8 Allergy status to other drugs, medicaments and biological substances; Z79.899 Other long term (current) drug therapy; Z79.2 Long term (current) use of antibiotics

== ENCOUNTER 2017-10-03 02:22 | Emergency (ER) | payer MEDICAID ==
[~2017-10-03] VITALS: Ht 182.9 cm; Wt 72.6 kg
[2017-10-03 03:33] LABS: Basophils # (auto) 0 uL; Basophils % (auto) 0.9 % (0.0-2.0); Eosinophils # (auto) 0 uL; Eosinophils % (auto) 0.7 % (0.0-7.0); Hematocrit 36.7 % (36.0-46.0); Hemoglobin 12.2 g/dL (12.2-16.2); Lymphocytes # (auto) 1.3 uL; Lymphocytes % (auto) 30.4 % (10.0-50.0); Mean Corpuscular Hemoglobin 30.7 pg (28.0-32.0); Mean Corpuscular Hgb Conc. 33.2 g/dL (32.0-36.0); Mean Corpuscular Volume 92.4 fL (80.0-100.0); Monocytes # (auto) 0.4 uL; Monocytes % (auto) 8.9 % (0.0-12.0); Neutrophils # (auto) 2.5 uL; Neutrophils % (auto) 59.1 % (37.0-80.0); Platelet Count (auto) 121 10^3/uL (140-450); Red Blood Cells 3.98 10^6/uL (4.0-5.20); Red Cell Distribution Width 14.1 % (11.8-14.3); White Blood Cell 4.2 10^3/uL (4.4-10.8)
[2017-10-03 03:47] LABS: INR 0.96 (0.9-1.15); Partial Thromboplastin Time 23.1 sec (22.64-33.71); Prothrombin Time 10.5 sec (9.37-12.3)
[2017-10-03 03:55] LABS: Alanine Aminotransferase 34 U/L (13-56); Albumin 3.5 g/dL (3.4-5.0); Alkaline Phosphatase 103 U/L (45-117); Anion Gap 7 (5-15); Aspartate Aminotransferase 29 U/L (15-37); BUN/Creatinine Ratio 20.8; Bilirubin, Total 0.3 mg/dL (0.2-1.0); Blood Alcohol < 3.0 mg/dL (0-5); Blood Urea Nitrogen 21 mg/dL (7-18); Calcium 8.6 mg/dL (8.5-10.1); Carbon Dioxide 28 mmol/L (21-32); Chloride 108 mmol/L (98-107); GFR African American 74 mL/min; GFR Non-African American 61 mL/min; Glucose 75 mg/dL (74-106); Magnesium 2.4 mg/dL (1.6-2.6); Sodium 143 mmol/L (136-145); Total Protein 6.8 g/dL (6.4-8.2)
== END 2017-10-03 04:12 | disposition left against medical advice (07) ==
LOC: ER 02:34
DX: R40.4 Transient alteration of awareness (principal); Z53.21 Procedure and treatment not carried out due to patient leaving prior to being seen by health care provider
CPT/HCPCS: 36415; 80053; 80320; 83735; 84484; 85025; 85610; 85730

== ENCOUNTER 2017-10-14 21:14 | Emergency (ER) | payer MEDICAID ==
[~2017-10-14] VITALS: Ht 172.7 cm; Wt 72.6 kg
[2017-10-14] MEDS ORDERED: BACITRACIN TOP OINT 1 UD PKG TOP ONE (22:50)
[2017-10-15] MEDS ORDERED: SODIUM CHLORIDE 0.9% 1,000 ML IV ONE (08:56)
[2017-10-15 09:20] LABS: Basophils # (auto) 0 uL; Basophils % (auto) 0.8 % (0.0-2.0); Eosinophils # (auto) 0.1 uL; Hematocrit 40.8 % (36.0-46.0); Hemoglobin 13.8 g/dL (12.2-16.2); Lymphocytes # (auto) 1.3 uL; Mean Corpuscular Hemoglobin 30.8 pg (28.0-32.0); Mean Corpuscular Hgb Conc. 33.8 g/dL (32.0-36.0); Mean Corpuscular Volume 91.1 fL (80.0-100.0); Monocytes # (auto) 0.4 uL; Monocytes % (auto) 12.2 % (0.0-12.0); Neutrophils # (auto) 1.6 uL; Nucleated Red Blood Cells % 0.1 %; Platelet Count (auto) 169 10^3/uL (140-450); Red Blood Cells 4.48 10^6/uL (4.0-5.20); Red Cell Distribution Width 13.7 % (11.8-14.3); White Blood Cell 3.5 10^3/uL (4.4-10.8)
[2017-10-15 09:32] LABS: Urine Bacteria NONE SEEN /hpf (None Seen); Urine Blood Negative /uL (Negative); Urine Mucus FEW (None Seen); Urine Specific Gravity 1.006 (1.001-1.035); Urine WBC 1 /hpf (0 - 5)
[2017-10-15 09:48] LABS: Albumin 3.7 g/dL (3.4-5.0); BUN/Creatinine Ratio 16.5; Bilirubin, Total 0.5 mg/dL (0.2-1.0); Calcium 8.9 mg/dL (8.5-10.1); Magnesium 2.6 mg/dL (1.6-2.6); Potassium 3.3 mmol/L (3.5-5.1); Total Protein 7.6 g/dL (6.4-8.2)
[2017-10-15 10:05] VITALS: BP 117/67
[2017-10-15] MEDS ORDERED: POTASSIUM CHL 10% (20 MEQ/15ML) 15ml ORAL SOLN PO ONE (11:30)
== END 2017-10-15 12:02 | disposition home or self-care (01) ==
LOC: ER 21:15
DX: G40.909 Epilepsy, unspecified, not intractable, without status epilepticus (principal); E87.6 Hypokalemia; F31.9 Bipolar disorder, unspecified; F17.210 Nicotine dependence, cigarettes, uncomplicated; J44.9 Chronic obstructive pulmonary disease, unspecified; I10 Essential (primary) hypertension; Z91.14 Patient's other noncompliance with medication regimen; Z59.0 Homelessness; Z88.8 Allergy status to other drugs, medicaments and biological substances
CPT/HCPCS: 36415; 71046; 80053; 80164; 81001; 83735; 84443; 85025; 93005; 94761; 96360; 96361; 99285; J7030

== ENCOUNTER 2017-11-18 18:19 | Emergency (ER) | payer MEDICAID ==
[~2017-11-18] VITALS: Ht 182.9 cm; Wt 68.0 kg
[2017-11-18 21:27] VITALS: BP 111/53
== END 2017-11-18 21:50 | disposition home or self-care (01) ==
LOC: ER 18:19
DX: G40.909 Epilepsy, unspecified, not intractable, without status epilepticus (principal); J44.9 Chronic obstructive pulmonary disease, unspecified; I10 Essential (primary) hypertension; F17.210 Nicotine dependence, cigarettes, uncomplicated; Z59.0 Homelessness; Z79.899 Other long term (current) drug therapy; Z88.8 Allergy status to other drugs, medicaments and biological substances; Z90.710 Acquired absence of both cervix and uterus

== ENCOUNTER 2018-01-12 17:52 | Emergency (ER) | payer MEDICAID ==
[~2018-01-12] VITALS: Ht 182.9 cm; Wt 59.9 kg
[2018-01-12 19:21] LABS: Basophils # (auto) 0 uL; Basophils % (auto) 0.8 % (0.0-2.0); Eosinophils # (auto) 0.2 uL; Eosinophils % (auto) 3.2 % (0.0-7.0); Hemoglobin 13.4 g/dL (12.2-16.2); Lymphocytes # (auto) 1.6 uL; Mean Corpuscular Hemoglobin 29.5 pg (28.0-32.0); Mean Corpuscular Hgb Conc. 33.4 g/dL (32.0-36.0); Mean Corpuscular Volume 88.2 fL (80.0-100.0); Monocytes # (auto) 0.6 uL; Monocytes % (auto) 12.3 % (0.0-12.0); Neutrophils # (auto) 2.5 uL; Neutrophils % (auto) 51.7 % (37.0-80.0); Nucleated Red Blood Cells % 0.1 %; Red Blood Cells 4.53 10^6/uL (4.0-5.20); Red Cell Distribution Width 16.3 % (11.8-14.3); White Blood Cell 4.9 10^3/uL (4.4-10.8)
[2018-01-12 19:35] LABS: Albumin 3.4 g/dL (3.4-5.0); BUN/Creatinine Ratio 19.3; Calcium 8.4 mg/dL (8.5-10.1); Platelet Count (auto) 118 10^3/uL (140-450); Potassium 4.6 mmol/L (3.5-5.1)
[2018-01-12 19:38] LABS: Bilirubin, Total 0.3 mg/dL (0.2-1.0); Total Protein 7.4 g/dL (6.4-8.2)
[2018-01-12] MEDS ORDERED: PANTOPRAZOLE 40 MG/10 ML VIAL IV STA (19:51)
[2018-01-12] MEDS ORDERED: SODIUM CHLORIDE 0.9% 500 ML IVB ONE (19:51)
[2018-01-12 19:54] VITALS: BP 112/62
[2018-01-12] MEDS ORDERED: ONDANSETRON HCL 4 MG/2 ML VIAL IV ONE (20:00)
[2018-01-12] MEDS ORDERED: MORPHINE SULFATE 8mg/ml INJ SDV IV ONE (20:00)
== END 2018-01-12 22:11 | disposition home or self-care (01) ==
LOC: ER 18:00
DX: K21.9 Gastro-esophageal reflux disease without esophagitis (principal); F17.210 Nicotine dependence, cigarettes, uncomplicated; R51 Headache; I10 Essential (primary) hypertension; J44.9 Chronic obstructive pulmonary disease, unspecified; Z59.0 Homelessness; Z88.6 Allergy status to analgesic agent
CPT/HCPCS: 36415; 80053; 83690; 85025; 94761; 96361; 96374; 96375; 99285; C9113; J2270; J2405

== ENCOUNTER 2018-03-13 09:18 | Inpatient (IN) | payer MEDICAID ==
[~2018-03-13] VITALS: Ht 182.9 cm; Wt 65.8 kg
[2018-03-13] MEDS ORDERED: SODIUM CHLORIDE 0.9% 1,000 ML IV ONE (09:35)
[2018-03-13 10:17] LABS: Urine Bacteria NONE SEEN /hpf (None Seen); Urine Blood Negative /uL (Negative); Urine Mucus FEW (None Seen); Urine Specific Gravity 1.017 (1.001-1.035); Urine WBC <1 /hpf (0 - 5)
[2018-03-13 10:31] LABS: Alcohol, Urine < 3.0 mg/dL (0-5); Amphetamine Screen, Urine NEGATIVE (NEGATIVE); Barbiturate Scree,Urine POSITIVE (NEGATIVE); Benzodiazephine Screen, Urine NEGATIVE (NEGATIVE); Cannabinoid Screen, Urine NEGATIVE (NEGATIVE); Cocaine Screen, Urine NEGATIVE (NEGATIVE); Opiate Scree,Urine NEGATIVE (NEGATIVE); Phencyclidine Screen, Urine NEGATIVE (NEGATIVE)
[2018-03-13 10:32] LABS: Basophils # (auto) 0 uL; Basophils % (auto) 0.6 % (0.0-2.0); Eosinophils # (auto) 0 uL; Eosinophils % (auto) 0.8 % (0.0-7.0); Hematocrit 38.3 % (36.0-46.0); Hemoglobin 12.9 g/dL (12.2-16.2); Lymphocytes # (auto) 1.6 uL; Lymphocytes % (auto) 39.6 % (10.0-50.0); Mean Corpuscular Hemoglobin 29.8 pg (28.0-32.0); Mean Corpuscular Hgb Conc. 33.8 g/dL (32.0-36.0); Mean Corpuscular Volume 88.3 fL (80.0-100.0); Monocytes # (auto) 0.4 uL; Monocytes % (auto) 10.7 % (0.0-12.0); Neutrophils % (auto) 48.3 % (37.0-80.0); Nucleated Red Blood Cells % 0.1 %; Platelet Count (auto) 100 10^3/uL (140-450); Red Blood Cells 4.34 10^6/uL (4.0-5.20); Red Cell Distribution Width 16.2 % (11.8-14.3); White Blood Cell 4.1 10^3/uL (4.4-10.8)
[2018-03-13 10:43] LABS: INR 1.04 (0.9-1.15); Partial Thromboplastin Time 29.4 sec (23.78-33.04); Prothrombin Time 11.1 sec (9.27-12.13)
[2018-03-13 10:59] LABS: Alanine Aminotransferase 27 U/L (13-56); Albumin 3.3 g/dL (3.4-5.0); Alkaline Phosphatase 67 U/L (45-117); Anion Gap 10 (5-15); Aspartate Aminotransferase 28 U/L (15-37); BUN/Creatinine Ratio 17.3; Bilirubin, Total 0.6 mg/dL (0.2-1.0); Blood Urea Nitrogen 17 mg/dL (7-18); Calcium 8.4 mg/dL (8.5-10.1); Carbon Dioxide 22 mmol/L (21-32); Chloride 107 mmol/L (98-107); GFR African American 76 mL/min; GFR Non-African American 63 mL/min; Glucose 70 mg/dL (74-106); Sodium 139 mmol/L (136-145); Total Protein 6.9 g/dL (6.4-8.2)
[2018-03-13] MEDS ORDERED: LORazepam 2MG/ML-1ML VIAL IV PRN (13:30)
[2018-03-13] MEDS ORDERED: ONDANSETRON HCL 4 MG/2 ML VIAL IV PRN (13:30)
[2018-03-13] MEDS ORDERED: DOCUSATE SOD 100 MG CAP PO PRN (13:30)
[2018-03-13] MEDS ORDERED: ACETAMINOPHEN 325 MG TAB PO PRN (13:30)
[2018-03-13] MEDS ORDERED: cefTRIAXone 1GM/10ml IVPUSH 10 ML IV ONE (13:30)
[2018-03-13] MEDS ORDERED: TEMAZEPAM 15 MG CAP PO PRN (13:30)
[2018-03-13] MEDS: SODIUM CHLOR 0.9% PF (SALINE LOCK) 10ML VIAL/SYR IV SCH ×2 (13:59→22:06)
[2018-03-13] MEDS: CLINDAMYCIN 300MG IV 50 ML IV SCH ×2 (13:59→22:05)
[2018-03-13] MEDS: PROPRANOLOL HCL 20 MG TAB PO SCH ×2 (14:00→22:15)
[2018-03-13] MEDS: ALBUTEROL SULF 2.5 MG/0.5ML(0.5%) NEB SOLN NEB SCH ×2 (16:00→22:00)
[2018-03-13] MEDS: BOOST PLUS 8 ounce PO SCH (18:00)
[2018-03-13 19:50] VITALS: BP 115/63
[2018-03-13 21:34] VITALS: BP 116/67
[2018-03-13] MEDS: FAMOTIDINE 20 MG TAB PO SCH (22:06)
[2018-03-13] MEDS: TOPIRAMATE 100 MG TAB PO SCH (22:06)
[2018-03-13] MEDS: OXYBUTYNIN CHL 5 MG TAB PO SCH (22:06)
[2018-03-13] MEDS: TOPIRAMATE 25 MG TAB PO SCH (22:07)
[2018-03-13] MEDS: HYDROcodone-ACET 5/325MG TAB PO PRN (22:07)
[2018-03-13] MEDS: ASCORBIC ACID 500 MG TAB PO SCH (22:07)
[2018-03-14] VITALS (8 sets, daily range): BP systolic 91–137; BP diastolic 50–97
[2018-03-14] MEDS: HYDROcodone-ACET 5/325MG TAB PO PRN ×2 (05:32→09:44)
[2018-03-14] MEDS: CLINDAMYCIN 300MG IV 50 ML IV SCH ×2 (05:35→14:03)
[2018-03-14] MEDS: SODIUM CHLOR 0.9% PF (SALINE LOCK) 10ML VIAL/SYR IV SCH ×2 (05:35→14:03)
[2018-03-14] MEDS: PROPRANOLOL HCL 20 MG TAB PO SCH ×2 (05:40→13:54)
[2018-03-14] MEDS: ALBUTEROL SULF 2.5 MG/0.5ML(0.5%) NEB SOLN NEB SCH ×2 (06:20→14:16)
[2018-03-14 06:25] LABS: Basophils # (auto) 0 uL; Basophils % (auto) 0.6 % (0.0-2.0); Eosinophils # (auto) 0 uL; Hematocrit 37.8 % (36.0-46.0); Hemoglobin 12.8 g/dL (12.2-16.2); Lymphocytes # (auto) 1.6 uL; Lymphocytes % (auto) 44.2 % (10.0-50.0); Mean Corpuscular Hemoglobin 30.1 pg (28.0-32.0); Mean Corpuscular Hgb Conc. 33.8 g/dL (32.0-36.0); Mean Corpuscular Volume 88.9 fL (80.0-100.0); Monocytes # (auto) 0.6 uL; Monocytes % (auto) 16.3 % (0.0-12.0); Neutrophils # (auto) 1.4 uL; Neutrophils % (auto) 37.9 % (37.0-80.0); Nucleated Red Blood Cells % 0.2 %; Red Blood Cells 4.25 10^6/uL (4.0-5.20); Red Cell Distribution Width 16.3 % (11.8-14.3); White Blood Cell 3.6 10^3/uL (4.4-10.8)
[2018-03-14 06:31] LABS: Albumin 2.6 g/dL (3.4-5.0); BUN/Creatinine Ratio 26.6; Potassium 3.9 mmol/L (3.5-5.1)
[2018-03-14 06:34] LABS: Bilirubin, Total 0.3 mg/dL (0.2-1.0); Total Protein 6.2 g/dL (6.4-8.2)
[2018-03-14 06:48] LABS: Platelet Count (auto) 77 10^3/uL (140-450)
[2018-03-14] MEDS: BOOST PLUS 8 ounce PO SCH ×3 (08:00→18:00)
[2018-03-14] MEDS ORDERED: cefTRIAXone 1GM/10ml IVPUSH 10 ML IV SCH (09:00)
[2018-03-14] MEDS: TOPIRAMATE 100 MG TAB PO SCH (09:36)
[2018-03-14] MEDS: FAMOTIDINE 20 MG TAB PO SCH (09:36)
[2018-03-14] MEDS: ASCORBIC ACID 500 MG TAB PO SCH (09:36)
[2018-03-14] MEDS: TOPIRAMATE 25 MG TAB PO SCH (09:36)
[2018-03-14] MEDS: OXYBUTYNIN CHL 5 MG TAB PO SCH (09:37)
[2018-03-14] MEDS ORDERED: ZINC SULFATE 220 MG CAP PO SCH (10:00)
[2018-03-14] MEDS ORDERED: MULTIPLE VITAMIN TAB PO SCH (10:00)
[2018-03-14] MEDS ORDERED: SODIUM CHLORIDE 0.9% 1,000 ML IV ONE ×2 (10:45→12:00)
[2018-03-14] MEDS ORDERED: SODIUM CHLORIDE 0.9% 1,000 ML IV SCH (12:15)
[2018-03-14] MEDS ORDERED: CLIN1CAP4 PO (14:27)
== END 2018-03-14 21:23 | disposition home health service (06) | DRG 383 ==
LOC: ER 09:18 → OVERFLOW 09:19 → EAST 19:38
PROVIDERS: ADMIT Internal Medicine; ATTEND Internal Medicine
DX: L03.115 Cellulitis of right lower limb (principal); E43 Unspecified severe protein-calorie malnutrition; D69.6 Thrombocytopenia, unspecified; E83.51 Hypocalcemia; G45.9 Transient cerebral ischemic attack, unspecified; I13.0 Hypertensive heart and chronic kidney disease with heart failure and stage 1 through stage 4 chronic kidney disease, or unspecified chronic kidney disease; I50.9 Heart failure, unspecified; E86.0 Dehydration; J44.9 Chronic obstructive pulmonary disease, unspecified; F41.9 Anxiety disorder, unspecified; L03.116 Cellulitis of left lower limb; F31.9 Bipolar disorder, unspecified; G40.909 Epilepsy, unspecified, not intractable, without status epilepticus; N18.2 Chronic kidney disease, stage 2 (mild); R32 Unspecified urinary incontinence; F17.210 Nicotine dependence, cigarettes, uncomplicated; G25.0 Essential tremor; Z82.49 Family history of ischemic heart disease and other diseases of the circulatory system; Z59.0 Homelessness; Z88.8 Allergy status to other drugs, medicaments and biological substances; Z90.49 Acquired absence of other specified parts of digestive tract; Z68.1 Body mass index [BMI] 19.9 or less, adult
CPT/HCPCS: 36415; 70450; 71045; 80053; 80307; 81001; 83880; 84484; 85025; 85610; 85730; 87040; 93005; 94640; 96361; 96365; 96375; J3490

== ENCOUNTER 2018-05-03 10:21 | Inpatient (IN) | payer MEDICAID ==
[~2018-05-03] VITALS: Ht 182.9 cm; Wt 68.0 kg
[~2018-05-03 10:21] MED LIST changes: -CIPR-173 PO; +CLIN1CAP4 PO; -PROP60CA8 PO
[2018-05-03] MEDS ORDERED: SODIUM CHLORIDE 0.9% 1,000 ML IV ONE (10:52)
[2018-05-03 10:56] LABS: Basophils # (auto) 0 uL; Basophils % (auto) 0.5 % (0.0-2.0); Eosinophils # (auto) 0 uL; Eosinophils % (auto) 0.8 % (0.0-7.0); Hematocrit 39.6 % (36.0-46.0); Hemoglobin 13.5 g/dL (12.2-16.2); Lymphocytes # (auto) 1.4 uL; Lymphocytes % (auto) 47.9 % (10.0-50.0); Mean Corpuscular Hemoglobin 30.7 pg (28.0-32.0); Mean Corpuscular Volume 90.1 fL (80.0-100.0); Monocytes # (auto) 0.3 uL; Monocytes % (auto) 10.7 % (0.0-12.0); Neutrophils # (auto) 1.1 uL; Neutrophils % (auto) 40.1 % (37.0-80.0); Nucleated Red Blood Cells % 0.2 %; Platelet Count (auto) 78 10^3/uL (140-450); Red Cell Distribution Width 14.8 % (11.8-14.3); White Blood Cell 2.9 10^3/uL (4.4-10.8)
[2018-05-03 11:17] LABS: Alanine Aminotransferase 22 U/L (13-56); Albumin 3.1 g/dL (3.4-5.0); Alkaline Phosphatase 74 U/L (45-117); Anion Gap 9 (5-15); Aspartate Aminotransferase 18 U/L (15-37); BUN/Creatinine Ratio 24.8; Bilirubin, Total 0.4 mg/dL (0.2-1.0); Blood Alcohol < 3.0 mg/dL (0-5); Blood Urea Nitrogen 27 mg/dL (7-18); Calcium 7.9 mg/dL (8.5-10.1); Carbon Dioxide 21 mmol/L (21-32); Chloride 111 mmol/L (98-107); GFR African American 68 mL/min; GFR Non-African American 56 mL/min; Glucose 73 mg/dL (74-106); Potassium 3.8 mmol/L (3.5-5.1); Sodium 141 mmol/L (136-145); Total Protein 6.5 g/dL (6.4-8.2)
[2018-05-03 12:43] LABS: Alcohol, Urine < 3.0 mg/dL (0-5); Amphetamine Screen, Urine NEGATIVE (NEGATIVE); Barbiturate Scree,Urine POSITIVE (NEGATIVE); Benzodiazephine Screen, Urine NEGATIVE (NEGATIVE); Cannabinoid Screen, Urine NEGATIVE (NEGATIVE); Cocaine Screen, Urine POSITIVE (NEGATIVE); Opiate Scree,Urine NEGATIVE (NEGATIVE); Phencyclidine Screen, Urine NEGATIVE (NEGATIVE)
[2018-05-03] MEDS ORDERED: PROMETHAZINE HCL 25 MG/ML 1ML IV PRN (13:45)
[2018-05-03] MEDS ORDERED: LORazepam 2MG/ML-1ML VIAL IV PRN (13:45)
[2018-05-03] MEDS ORDERED: LORazepam 0.5 MG TAB PO PRN (13:45)
[2018-05-03] MEDS ORDERED: LABETALOL HCL 5 MG/ML ML 20ML VIAL IV PRN (13:45)
[2018-05-03] MEDS ORDERED: NITROGLYCERIN 0.4 MG SL TAB SL PRN (13:45)
[2018-05-03] MEDS ORDERED: MORPHINE SULF INJ 2 MG/ML SYRINGE 1ML IV PRN (13:45)
[2018-05-03] MEDS ORDERED: KETOROLAC TROMETH 30 MG/ML 1ML VIAL IV PRN (13:45)
[2018-05-03] MEDS ORDERED: LACTULOSE 20Gm/30ML SOLN PO PRN (13:45)
[2018-05-03] MEDS ORDERED: TEMAZEPAM 15 MG CAP PO PRN (13:45)
[2018-05-03] MEDS ORDERED: DEXTROSE (50%) 50ML SYRG IV PRN (13:45)
[2018-05-03] MEDS ORDERED: ACETAMINOPHEN 500 MG TAB PO PRN (13:45)
[2018-05-03] MEDS: SODIUM CHLORIDE 0.9% 1,000 ML IV SCH (14:00)
[2018-05-03] MEDS ORDERED: FLUoxetine HCL 20 MG CAP PO ONE (14:00)
[2018-05-03] MEDS: PANTOPRAZOLE 40 MG TAB PO SCH (14:32)
[2018-05-03] MEDS: traMADol HCL 50 MG TAB PO PRN ×2 (14:32→15:39)
[2018-05-03] MEDS: ENOXAPARIN SOD 40 MG/0.4 ML SYRINGE SC SCH (14:32)
[2018-05-03 14:39] LABS: Folate (Folic Acid) 15.39 ng/mL (5.38-24)
[2018-05-03] MEDS ORDERED: ASPirin 81 mg TAB PO SCH (15:00)
[2018-05-03] MEDS: ACCU-CHEK COMFORT CURVE STRIP VI SCH ×2 (15:44→20:26)
[2018-05-03] MEDS: MIRTAZAPINE 30 MG TAB PO SCH (22:06)
[2018-05-03] MEDS: TOPIRAMATE 25 MG TAB PO SCH (22:06)
[2018-05-03] MEDS: OXYBUTYNIN CHL 5 MG TAB PO SCH (22:06)
[2018-05-03] MEDS: ATORVASTATIN 20 MG TAB PO SCH (22:06)
[2018-05-03 22:30] VITALS: BP 99/68
[2018-05-04] MEDS: ACCU-CHEK COMFORT CURVE STRIP VI SCH ×4 (00:06→11:39)
[2018-05-04] MEDS: SODIUM CHLORIDE 0.9% 1,000 ML IV SCH ×2 (02:14→15:56)
[2018-05-04 05:00] VITALS: BP 103/65
[2018-05-04 06:36] LABS: White Blood Cell 2.6 10^3/uL (4.4-10.8)
[2018-05-04 06:39] LABS: Hematocrit 37.6 % (36.0-46.0); Hemoglobin 13.1 g/dL (12.2-16.2); Mean Corpuscular Hemoglobin 31.1 pg (28.0-32.0); Mean Corpuscular Hgb Conc. 34.8 g/dL (32.0-36.0); Mean Corpuscular Volume 89.5 fL (80.0-100.0); Platelet Count (auto) 59 10^3/uL (140-450); Red Cell Distribution Width 14.8 % (11.8-14.3)
[2018-05-04 06:43] LABS: BUN/Creatinine Ratio 22.6; Bilirubin, Total 0.3 mg/dL (0.2-1.0); Calcium 8.2 mg/dL (8.5-10.1); Potassium 3.8 mmol/L (3.5-5.1); Total Protein 5.9 g/dL (6.4-8.2)
[2018-05-04 07:06] LABS: Basophils % (manual) 0 (0.0-2.0); Blast Cells 0; Metamyelocytes % 0; Myelocytes % 0; Promyelocytes % 0; Reactive Lymphocytes 0
[2018-05-04 08:58] VITALS: BP 115/53
[2018-05-04] MEDS: PANTOPRAZOLE 40 MG TAB PO SCH (09:51)
[2018-05-04] MEDS: OXYBUTYNIN CHL 5 MG TAB PO SCH ×2 (09:52→22:11)
[2018-05-04] MEDS: TOPIRAMATE 25 MG TAB PO SCH ×2 (09:52→22:09)
[2018-05-04] MEDS: ENOXAPARIN SOD 40 MG/0.4 ML SYRINGE SC SCH (09:52)
[2018-05-04 09:57] LABS: Band Neutrophils % (manual) 1; Eosinophils % (manual) 1 (0-7); Lymphocytes % (manual) 67 (10.0-50.0); Monocytes % (manual) 6 (0-12)
[2018-05-04] MEDS ORDERED: FLUoxetine HCL 20 MG CAP PO SCH (10:00)
[2018-05-04 13:00] VITALS: BP 100/67
[2018-05-04 17:00] VITALS: BP 93/52
[2018-05-04] MEDS: ATORVASTATIN 20 MG TAB PO SCH (22:00)
[2018-05-04] MEDS: MIRTAZAPINE 30 MG TAB PO SCH (22:17)
== END 2018-05-04 22:25 | disposition home or self-care (01) | DRG 53 ==
LOC: ER 10:21 → TELE 10:22 → TELE-EAST 22:45
PROVIDERS: ADMIT Internal Medicine; ATTEND Internal Medicine
DX: G40.909 Epilepsy, unspecified, not intractable, without status epilepticus (principal); D69.6 Thrombocytopenia, unspecified; F17.210 Nicotine dependence, cigarettes, uncomplicated; F31.9 Bipolar disorder, unspecified; F41.9 Anxiety disorder, unspecified; D72.819 Decreased white blood cell count, unspecified; I10 Essential (primary) hypertension; J44.9 Chronic obstructive pulmonary disease, unspecified; E16.2 Hypoglycemia, unspecified; F14.90 Cocaine use, unspecified, uncomplicated; T42.6X5A Adverse effect of other antiepileptic and sedative-hypnotic drugs, initial encounter; Z82.49 Family history of ischemic heart disease and other diseases of the circulatory system; Z88.8 Allergy status to other drugs, medicaments and biological substances; Z80.3 Family history of malignant neoplasm of breast; Z83.3 Family history of diabetes mellitus; Z90.49 Acquired absence of other specified parts of digestive tract; Y92.89 Other specified places as the place of occurrence of the external cause
CPT/HCPCS: 36415; 70450; 71045; 80053; 80061; 80164; 80307; 80320; 82550; 82607; 82746; 82962; 83036; 83880; 84484; 85007; 85025; 85027; 85652; 93005; 95819; 96360; 96361; 96372; A6257

== ENCOUNTER 2018-12-17 16:05 | Emergency (ER) | payer MEDICAID ==
[~2018-12-17] VITALS: Ht 182.9 cm; Wt 88.5 kg
[~2018-12-17 16:05] MED LIST changes: -CLIN1CAP4 PO; +DIVA1TAB59 PO; -DIVA500T7 PO; -TOPI25TA84 PO
[2018-12-17 19:00] VITALS: BP 100/68
[2018-12-17] MEDS ORDERED: AZITHROMYCIN 250 MG TAB PO ONE (19:00)
[2018-12-17] MEDS ORDERED: cefTRIAXone SOD 1,000 MG VL IM ONE (19:00)
[2018-12-17] MEDS ORDERED: DexAMETHasone SOD PHOS 10MG/1ML VIAL INJ IM ONE (19:00)
[2018-12-17] MEDS ORDERED: LIDOCAINE 1% HCL (LOCAL ANESTH.) INJ 20ML MDV ONE (19:15)
== END 2018-12-17 19:45 | disposition home or self-care (01) ==
LOC: ER 16:13
DX: J06.9 Acute upper respiratory infection, unspecified (principal); N39.0 Urinary tract infection, site not specified; F17.210 Nicotine dependence, cigarettes, uncomplicated; J44.9 Chronic obstructive pulmonary disease, unspecified; I10 Essential (primary) hypertension; Z88.6 Allergy status to analgesic agent; Z90.49 Acquired absence of other specified parts of digestive tract
CPT/HCPCS: 96372; 99283; J0696; J1100; J2001

== ENCOUNTER 2019-05-16 23:02 | Emergency (ER) | payer MEDICAID ==
[~2019-05-16] VITALS: Ht 172.7 cm; Wt 63.5 kg
[2019-05-17 00:12] LABS: Basophils # (auto) 0 uL; Basophils % (auto) 0.9 % (0.0-2.0); Eosinophils # (auto) 0.1 uL; Eosinophils % (auto) 2.6 % (0.0-7.0); Hematocrit 40.1 % (36.0-46.0); Hemoglobin 13.6 g/dL (12.2-16.2); Lymphocytes # (auto) 1.7 uL; Lymphocytes % (auto) 40.8 % (10.0-50.0); Mean Corpuscular Hemoglobin 31.7 pg (28.0-32.0); Mean Corpuscular Hgb Conc. 33.9 g/dL (32.0-36.0); Mean Corpuscular Volume 93.8 fL (80.0-100.0); Monocytes # (auto) 0.6 uL; Monocytes % (auto) 13.7 % (0.0-12.0); Neutrophils # (auto) 1.7 uL; Nucleated Red Blood Cells % 0.3 %; Platelet Count (auto) 89 10^3/uL (140-450); Red Blood Cells 4.28 10^6/uL (4.0-5.20); Red Cell Distribution Width 15.2 % (11.8-14.3); White Blood Cell 4.2 10^3/uL (4.4-10.8)
[2019-05-17 00:29] LABS: Albumin 3.2 g/dL (3.4-5.0); BUN/Creatinine Ratio 22.1; Calcium 8.5 mg/dL (8.5-10.1); Potassium 4.3 mmol/L (3.5-5.1)
[2019-05-17 00:32] LABS: Bilirubin, Total 0.4 mg/dL (0.2-1.0); Total Protein 6.7 g/dL (6.4-8.2)
[2019-05-17 00:53] LABS: Urine Bacteria FEW /hpf (None Seen); Urine Blood Negative /uL (Negative); Urine Hyaline Cast FEW /lpf (0 - 2); Urine Mucus FEW (None Seen); Urine Specific Gravity 1.023 (1.001-1.035); Urine WBC 5 /hpf (0 - 5)
[2019-05-17 03:25] LABS: Alcohol, Urine < 3.0 mg/dL (0-5); Amphetamine Screen, Urine NEGATIVE (NEGATIVE); Barbiturate Scree,Urine NEGATIVE (NEGATIVE); Benzodiazephine Screen, Urine NEGATIVE (NEGATIVE); Cannabinoid Screen, Urine NEGATIVE (NEGATIVE); Cocaine Screen, Urine NEGATIVE (NEGATIVE); Opiate Scree,Urine NEGATIVE (NEGATIVE); Phencyclidine Screen, Urine NEGATIVE (NEGATIVE)
[2019-05-17] MEDS ORDERED: TOPIRAMATE 100 MG TAB PO ONE (06:15)
[2019-05-17 10:00] VITALS: BP 133/77
== END 2019-05-17 11:47 | disposition home or self-care (01) ==
LOC: EDBD 23:02 → ER 23:06
DX: G40.909 Epilepsy, unspecified, not intractable, without status epilepticus (principal); N39.0 Urinary tract infection, site not specified; J44.9 Chronic obstructive pulmonary disease, unspecified; I10 Essential (primary) hypertension; F17.210 Nicotine dependence, cigarettes, uncomplicated; Z90.49 Acquired absence of other specified parts of digestive tract
CPT/HCPCS: 36415; 80053; 80307; 80320; 81001; 81025; 85025; 93005; 94761; A4565

== ENCOUNTER 2019-06-18 14:12 | Inpatient (IN) | payer MEDICAID ==
[~2019-06-18] VITALS: Ht 167.6 cm; Wt 80.3 kg
[2019-06-18] MEDS ORDERED: SODIUM CHLORIDE 0.9% 500 ML IVB ONE (14:29)
[2019-06-18 15:08] LABS: Basophils # (auto) 0.1 uL; Basophils % (auto) 1.2 % (0.0-2.0); Eosinophils # (auto) 0 uL; Eosinophils % (auto) 0.5 % (0.0-7.0); Hematocrit 42.2 % (36.0-46.0); Hemoglobin 14.3 g/dL (12.2-16.2); Lymphocytes # (auto) 1.6 uL; Lymphocytes % (auto) 37.6 % (10.0-50.0); Mean Corpuscular Hemoglobin 31.8 pg (28.0-32.0); Mean Corpuscular Hgb Conc. 33.9 g/dL (32.0-36.0); Mean Corpuscular Volume 93.9 fL (80.0-100.0); Monocytes # (auto) 0.8 uL; Neutrophils # (auto) 1.9 uL; Neutrophils % (auto) 42.6 % (37.0-80.0); Nucleated Red Blood Cells % 0.1 %; Platelet Count (auto) 70 10^3/uL (140-450); Red Blood Cells 4.49 10^6/uL (4.0-5.20); Red Cell Distribution Width 14.4 % (11.8-14.3); White Blood Cell 4.3 10^3/uL (4.4-10.8)
[2019-06-18 15:11] LABS: Monocytes % (auto) 18.1 % (0.0-12.0)
[2019-06-18 15:29] LABS: Alanine Aminotransferase 33 U/L (13-56); Albumin 3.4 g/dL (3.4-5.0); Anion Gap 5 (5-15); Aspartate Aminotransferase 41 U/L (15-37); BUN/Creatinine Ratio 15.9; Blood Alcohol < 3.0 mg/dL (0-5); Blood Urea Nitrogen 18 mg/dL (7-18); Calcium 8.2 mg/dL (8.5-10.1); Carbon Dioxide 26 mmol/L (21-32); Chloride 107 mmol/L (98-107); GFR African American 64 mL/min; GFR Non-African American 53 mL/min; Glucose 78 mg/dL (74-106); Magnesium 1.9 mg/dL (1.6-2.6); Sodium 138 mmol/L (136-145)
[2019-06-18 15:34] LABS: Alkaline Phosphatase 70 U/L (45-117); Bilirubin, Total 0.5 mg/dL (0.2-1.0); Total Protein 7.2 g/dL (6.4-8.2)
--- NOTE | 2019-06-18 19:26 | NUR ---
MS admit from ER Patient admitted to tele/MS and oriented to primary RN, unit, room, bed, and unit policies regarding patient care and visiting hours. Patient appears confused and is alert to self and time. Patient is very lethargic and fatigued and only responds to voice for a few seconds before going back to sleep. Bed is in lowest position and locked. Call light within reach. Board updated. Seizure precautions in place. Bed alarm on. Patient weighed by bedscale and encouraged to call if they need something. All questions and concerns addressed, patient verbalized understanding. Addendum: 06/19/19 at 0209 by DEVEN SCHAEFER RN 2325, not 1925
[2019-06-18] MEDS ORDERED: ONDANSETRON HCL 4 MG/2 ML VIAL IV PRN (21:30)
[2019-06-18] MEDS ORDERED: HYDROcodone-ACET 5/325MG TAB PO PRN (21:30)
[2019-06-18] MEDS ORDERED: ALBUTEROL SULF 2.5 MG/0.5ML(0.5%) NEB SOLN NEB PRN (21:30)
[2019-06-18] MEDS ORDERED: ACETAMINOPHEN 325 MG TAB PO PRN (21:30)
[2019-06-18] MEDS ORDERED: TEMAZEPAM 15 MG CAP PO PRN (21:30)
[2019-06-18 23:20] VITALS: BP 112/61
[2019-06-18 23:30] VITALS: BP 112/61
--- NOTE | 2019-06-18 23:30 | NUR ---
Respiratory note: PT SEEN AND ASSESSED FOR PRN MED NEB TX AT 2330. TX NOT INDICATED AT THIS TIME. PT DISPLAYING NO SIGNS OF DISTRESS. HR 67 RR 16 POX 96% ON ROOM AIR.
[2019-06-18] MEDS: PROPRANOLOL HCL 20 MG TAB PO SCH (23:41)
[2019-06-18] MEDS: FAMOTIDINE 20 MG TAB PO SCH (23:41)
[2019-06-18] MEDS: MIRTAZAPINE 30 MG TAB PO SCH (23:41)
[2019-06-18] MEDS: TOPIRAMATE 100 MG TAB PO SCH (23:41)
--- NOTE | 2019-06-18 23:56 | NUR ---
Patient ambulated to the bathroom with standby assistance to voice. Urine sample collected.
[2019-06-19] VITALS (7 sets, daily range): BP systolic 101–141; BP diastolic 61–101
--- NOTE | 2019-06-19 01:00 | NUR ---
PATIENT IS CONFUSED, UNABLE TO GIVE MANAGER TRADE. CALLED PERSON TO NOTIFY ON FILE, YEYO GARCÍA, SHE SAID SHE'S THE PATIENT'S SISTER BUT SHE HAS NOT SEEN THE PATIENT FOR LONG TIME. SHE DOES NOT KNOW WHOM THE PATIENT LIVES WITH AND DOES NOT KNOW MUCH REGARDING PATIENT'S CONDITION AND MEDICAL HISTORY
[2019-06-19 01:05] LABS: Urine Bacteria NONE SEEN /hpf (None Seen); Urine Blood Negative /uL (Negative); Urine Specific Gravity 1.005 (1.001-1.035); Urine WBC 1 /hpf (0 - 5)
[2019-06-19 01:20] LABS: Alcohol, Urine < 3.0 mg/dL (0-5); Amphetamine Screen, Urine NEGATIVE (NEGATIVE); Barbiturate Scree,Urine NEGATIVE (NEGATIVE); Benzodiazephine Screen, Urine NEGATIVE (NEGATIVE); Cannabinoid Screen, Urine NEGATIVE (NEGATIVE); Cocaine Screen, Urine NEGATIVE (NEGATIVE); Opiate Scree,Urine NEGATIVE (NEGATIVE); Phencyclidine Screen, Urine NEGATIVE (NEGATIVE)
[2019-06-19] MEDS: PROPRANOLOL HCL 20 MG TAB PO SCH ×3 (05:53→21:42)
[2019-06-19 06:08] LABS: Basophils # (auto) 0 uL; Eosinophils # (auto) 0 uL; Hemoglobin 13.8 g/dL (12.2-16.2); Monocytes # (auto) 0.8 uL; Neutrophils # (auto) 1.5 uL; White Blood Cell 4.4 10^3/uL (4.4-10.8)
[2019-06-19 06:16] LABS: Basophils % (auto) 0.8 % (0.0-2.0); Eosinophils % (auto) 0.5 % (0.0-7.0); Hematocrit 38.4 % (36.0-46.0); Lymphocytes # (auto) 2.1 uL; Lymphocytes % (auto) 46.3 % (10.0-50.0); Mean Corpuscular Hemoglobin 32.6 pg (28.0-32.0); Mean Corpuscular Hgb Conc. 35.9 g/dL (32.0-36.0); Mean Corpuscular Volume 90.7 fL (80.0-100.0); Monocytes % (auto) 17.5 % (0.0-12.0); Neutrophils % (auto) 34.9 % (37.0-80.0); Nucleated Red Blood Cells % 0.1 %; Platelet Count (auto) 54 10^3/uL (140-450); Red Blood Cells 4.24 10^6/uL (4.0-5.20); Red Cell Distribution Width 14.5 % (11.8-14.3)
[2019-06-19 06:33] LABS: Potassium 3.5 mmol/L (3.5-5.1)
[2019-06-19 06:45] LABS: BUN/Creatinine Ratio 16.9; Calcium 8.3 mg/dL (8.5-10.1)
[2019-06-19] MEDS: FAMOTIDINE 20 MG TAB PO SCH ×2 (09:45→21:42)
[2019-06-19] MEDS: TOPIRAMATE 100 MG TAB PO SCH ×2 (09:45→21:39)
[2019-06-19] MEDS: OXYBUTYNIN CHL 5 MG TAB PO SCH (10:05)
--- NOTE | 2019-06-19 11:26 | NUR ---
PT ASSESSED FOR MED NEB BREATHING TX, PT IN NO DISTRESS ON RA WITH SPO2 98%, CLEAR BS, HR 73, RR 16. NO INDICATION FOR MED NEB. WILL CONTINUE TO MONITOR PT.
[2019-06-19] MEDS ORDERED: SODIUM CHLORIDE 0.9% 1,000 ML IV ONE (16:15)
[2019-06-19] MEDS: LACTULOSE 20Gm/30ML SOLN PO SCH ×2 (18:08→21:38)
[2019-06-19] MEDS: SODIUM CHLORIDE 0.9% 1,000 ML IV SCH (18:12)
[2019-06-19] MEDS: LACOSAMIDE 50 MG TAB PO SCH (21:39)
[2019-06-19] MEDS: MIRTAZAPINE 30 MG TAB PO SCH (21:41)
[2019-06-19] MEDS: ROPINIROLE 0.5 MG PO SCH (22:00)
[2019-06-20] MEDS: SODIUM CHLORIDE 0.9% 1,000 ML IV SCH ×3 (02:15→22:03)
[2019-06-20 05:00] VITALS: BP 125/63
[2019-06-20] MEDS: ROPINIROLE 0.5 MG PO SCH ×3 (05:26→22:00)
[2019-06-20] MEDS: PROPRANOLOL HCL 20 MG TAB PO SCH ×3 (05:38→22:00)
[2019-06-20 07:28] LABS: Anion Gap 7 (5-15); BUN/Creatinine Ratio 20.5; Blood Urea Nitrogen 18 mg/dL (7-18); Carbon Dioxide 17 mmol/L (21-32); Chloride 114 mmol/L (98-107); GFR African American 86 mL/min; GFR Non-African American 71 mL/min; Glucose 73 mg/dL (74-106); Magnesium 2.1 mg/dL (1.6-2.6); Potassium 3.7 mmol/L (3.5-5.1); Sodium 138 mmol/L (136-145)
--- NOTE | 2019-06-20 08:05 | NUR ---
Respiratory note: PT ASSESSED FOR MED NEB BREATHING TX, PT IN NO DISTRESS ON RA WITH SPO2 95%, CLEAR BS, HR 74, RR 20. NO INDICATION FOR MED NEB. WILL CONTINUE TO MONITOR.
[2019-06-20 08:41] VITALS: BP 113/51
[2019-06-20] MEDS: RASAGILINE 1MG TAB PO SCH (10:00)
[2019-06-20] MEDS: LACTULOSE 20Gm/30ML SOLN PO SCH ×3 (10:46→22:00)
[2019-06-20] MEDS: OXYBUTYNIN CHL 5 MG TAB PO SCH (10:46)
[2019-06-20] MEDS: TOPIRAMATE 100 MG TAB PO SCH ×2 (10:46→21:53)
[2019-06-20] MEDS: FAMOTIDINE 20 MG TAB PO SCH ×2 (10:46→21:53)
[2019-06-20] MEDS: MEMANTINE HCL 5 MG TAB PO SCH (10:46)
[2019-06-20] MEDS: LACOSAMIDE 50 MG TAB PO SCH ×2 (10:47→21:53)
[2019-06-20 11:14] LABS: Basophils # (auto) 0 uL; Eosinophils # (auto) 0 uL; Hemoglobin 13.9 g/dL (12.2-16.2); Neutrophils # (auto) 3.2 uL; Nucleated Red Blood Cells % 0.1 %; Red Blood Cells 4.34 10^6/uL (4.0-5.20); White Blood Cell 5.8 10^3/uL (4.4-10.8)
[2019-06-20 11:16] LABS: Basophils % (auto) 0.4 % (0.0-2.0); Eosinophils % (auto) 0.3 % (0.0-7.0); Hematocrit 40.7 % (36.0-46.0); Lymphocytes # (auto) 1.6 uL; Lymphocytes % (auto) 28.2 % (10.0-50.0); Mean Corpuscular Hgb Conc. 34.1 g/dL (32.0-36.0); Monocytes % (auto) 16.4 % (0.0-12.0); Neutrophils % (auto) 54.7 % (37.0-80.0); Platelet Count (auto) 54 10^3/uL (140-450); Red Cell Distribution Width 14.1 % (11.8-14.3)
[2019-06-20 12:41] VITALS: BP 90/60
[2019-06-20 12:44] VITALS: BP 98/65
--- NOTE | 2019-06-20 13:00 | NUR ---
RECEIVED CALL FROM LAB PATIENT POSITIVE FOR HEP C.
[2019-06-20 13:14] LABS: RPR Non Reactive (Non Reactive)
--- NOTE | 2019-06-20 14:00 | NUR ---
RECEIVED CALL FROM DAYANARA FROM [facility]. PER DAYANARA PATIENT HOME MEDICATION IS ZYPREXA 5MG DAILY PO AND PROPRANOLOL 10 MG PO BID. DAYANARA IS PATIENT'S CALL CENTER OPERATIONS MANAGER PHONE #[phone].
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
--- NOTE | 2019-06-20 15:30 | NUR ---
PER PHARMACY NO POM HELD IN PHARMACY. Addendum: 06/21/19 at 0957 by YAMILET LORENZ RN RN Only medication down in pharmacy is a albuterol inhaler.
[2019-06-20 16:42] VITALS: BP 101/61
--- NOTE | 2019-06-20 17:30 | NUR ---
PATIENT REFUSING IV. EDUCATED ON IMPORTANCE OF IV, PATIENT STILL REFUSED.
--- NOTE | 2019-06-20 19:00 | NUR ---
RT NOTE PT WAS SEEN BY RT FOR PRN HHN TX. PT IS AWAKE AND WITHOUT S/S OF SOB OR DISTRESS. HR 69, RR 16, BS CLEAR, POX 95% ON R/A. NO PRN TX INDICATED AT THIS TIME. CONT ORDERED Addendum: 06/20/19 at 2135 by Vicky Granados RT Amended: Links added.
--- NOTE | 2019-06-20 19:00 | NUR ---
OPENING NOTE Received report from day shift RN. Patient is A&O X's self with no s/s of distress noted. Patient is currently having bed bath done by CARD ASSEMBLER. Educated patient on POC. Fall and seizure precautions are in place. Will continue care.
--- NOTE | 2019-06-20 20:50 | NUR ---
PATIENT RECEIVED FULL BED BATH AND LINEN CHANGE. BRUSHED PATIENTS HAIR.
[2019-06-20 21:30] VITALS: BP 96/65
[2019-06-20] MEDS: MIRTAZAPINE 30 MG TAB PO SCH (21:53)
[2019-06-21 04:45] VITALS: BP 100/70
[2019-06-21] MEDS: ROPINIROLE 0.5 MG PO SCH ×2 (06:00→14:00)
[2019-06-21] MEDS: LACTULOSE 20Gm/30ML SOLN PO SCH ×2 (06:09→14:00)
[2019-06-21] MEDS: PROPRANOLOL HCL 20 MG TAB PO SCH ×2 (06:10→14:00)
[2019-06-21 06:46] LABS: Basophils # (auto) 0 uL; Basophils % (auto) 0.7 % (0.0-2.0); Eosinophils # (auto) 0.1 uL; Eosinophils % (auto) 1.3 % (0.0-7.0); Hematocrit 44.6 % (36.0-46.0); Hemoglobin 14.8 g/dL (12.2-16.2); Lymphocytes # (auto) 1.8 uL; Lymphocytes % (auto) 36.4 % (10.0-50.0); Mean Corpuscular Hemoglobin 31.9 pg (28.0-32.0); Mean Corpuscular Hgb Conc. 33.1 g/dL (32.0-36.0); Mean Corpuscular Volume 96.5 fL (80.0-100.0); Monocytes # (auto) 0.7 uL; Monocytes % (auto) 15.4 % (0.0-12.0); Neutrophils # (auto) 2.2 uL; Neutrophils % (auto) 46.2 % (37.0-80.0); Nucleated Red Blood Cells % 0.3 %; Platelet Count (auto) 55 10^3/uL (140-450); Red Blood Cells 4.63 10^6/uL (4.0-5.20); Red Cell Distribution Width 14.4 % (11.8-14.3); White Blood Cell 4.8 10^3/uL (4.4-10.8)
[2019-06-21 07:12] LABS: Potassium 3.6 mmol/L (3.5-5.1)
[2019-06-21 07:16] LABS: BUN/Creatinine Ratio 24.1; Calcium 8.8 mg/dL (8.5-10.1); Magnesium 2.4 mg/dL (1.6-2.6)
--- NOTE | 2019-06-21 07:35 | NUR ---
OPENING NOTE Received report from day shift RN. Patient is A&O X's self with no s/s of distress noted. Patient is currently having hair washed done by MOLD CLEANER. Educated patient on POC. Fall and seizure precautions are in place. Will continue care.
--- NOTE | 2019-06-21 07:45 | NUR ---
Respiratory note: Assessed pt for prn medneb tx. HR 56, RR 14, POX 96% on room air. Breath sounds clear throughout. No s/s of respiratory distress noted. Medneb tx not indicated at this time. Advised pt to call for RT if breathing tx is needed.
[2019-06-21] MEDS: SODIUM CHLORIDE 0.9% 1,000 ML IV SCH (08:15)
[2019-06-21 09:00] VITALS: BP 98/65
[2019-06-21] MEDS: RASAGILINE 1MG TAB PO SCH (10:00)
[2019-06-21] MEDS: LACOSAMIDE 50 MG TAB PO SCH (10:24)
[2019-06-21] MEDS: FAMOTIDINE 20 MG TAB PO SCH (10:24)
[2019-06-21] MEDS: MEMANTINE HCL 5 MG TAB PO SCH (10:25)
[2019-06-21] MEDS: TOPIRAMATE 100 MG TAB PO SCH (10:25)
[2019-06-21] MEDS: OXYBUTYNIN CHL 5 MG TAB PO SCH (10:25)
[2019-06-21 13:00] VITALS: BP 100/60
--- NOTE | 2019-06-21 14:00 | NUR ---
PROPRANOLOL HELD B/P 93/60.
--- NOTE | 2019-06-21 14:51 | NUR ---
8056 06/21/19 I received a call from [facility] Rn Social Services Marie requesting PT notes on this patient-faxed requested PT notes for 06/20 and 06/21 to [phone].
--- NOTE | 2019-06-21 14:55 | NUR ---
ATTEMPTED TO INSERT MIDLINE. UNABLE TO ADVANCE CATHETER. PERIPHERAL IV LINE ESTABLISHED.
--- NOTE | 2019-06-21 14:56 | NUR ---
IV insertion IV access obtained, via clean sterile technique by inserting 22 gauge catheter at [LT HAND after 1 attempt(s). IV secured properly. No trauma to site. Patient tolerated well. NOTE: []
--- NOTE | 2019-06-21 15:11 | NUR ---
SPOKE WITH RACHELLE WITH CASE MANAGEMENT/INFANT CAREGIVER. PATIENT WILL BE PICKED UP BY [facility] AT 1700 TODAY AND TAKEN TO [facility], PHONE NUMBER [phone], ROOM 53A, ACCEPTING DOCTOR Yariel WATKINS.
--- NOTE | 2019-06-21 15:28 | NUR ---
D/C Planning Per consult for SNF placement for physical therapy. Contacted and faxed medical records to [facility], [facility] and [facility]. [facility] and [facility] are unable to meet Pt needs. Per Kay from [facility] Ph:) Fax:( [phone]) Pt has been accepted to room [address] accepting MD Dr. Deanne Lira. Contacted [facility] ph:( [phone]) fax:) faxed medical records. Per Richelle from [facility] authorization for SNF is [id number]. Contacted [facility] transport ph:) fax:) faxed transportation request form to arrange transportation time at 17:00 via [facility]. Advised LORRAINE Johansen. Addendum: 06/21/19 at 1534 by RACHELLE DOLAN Amended: Links added.
--- NOTE | 2019-06-21 16:00 | NUR ---
CALLED [facility] TO GIVE REPORT ON PHONE NUMBER [phone] LINE NOT WORKING UNABLE TO GIVE REPORT AT THIS TIME. CONFIRMED NUMBER ONLINE WITH [employer].
--- NOTE | 2019-06-21 16:00 | NUR ---
DOCTOR PATEL AT BEDSIDE. PER DOCTOR PATEL OKAY TO DISCHARGE PATIENT AND TO FOLLOW UP OUTPATIENT.
--- NOTE | 2019-06-21 16:30 | NUR ---
SEVERAL ATTEMPTS TO CALL [facility] [phone]. LINE SAYING ALL CIRCUITS ARE BUSY.
[2019-06-21 16:54] VITALS: BP 98/68
--- NOTE | 2019-06-21 17:00 | NUR ---
CALLED [facility] TO GIVE REPORT ON PHONE NUMBER [phone] LINE NOT WORKING "ALL CIRCUITS ARE BUSY AT THIS TIME" UNABLE TO GIVE REPORT AT THIS TIME.
--- NOTE | 2019-06-21 17:30 | NUR ---
CALLED [facility] TO GIVE REPORT ON PHONE NUMBER [phone] LINE NOT WORKING "ALL CIRCUITS ARE BUSY AT THIS TIME" UNABLE TO GIVE REPORT AT THIS TIME.
--- NOTE | 2019-06-21 18:00 | NUR ---
CALLED [facility] TO GIVE REPORT ON PHONE NUMBER [phone] LINE NOT WORKING "ALL CIRCUITS ARE BUSY AT THIS TIME" UNABLE TO GIVE REPORT AT THIS TIME.
--- NOTE | 2019-06-21 18:08 | NUR ---
Discharge instructions given as ordered. All questions and concerns addressed. Patient verbalized understanding. IV removed with catheter intact, pressure dressing applied. Medication reconciliation form completed and copy given to patient. Home medications held in Pharmacy returned to patient, and no needed vaccines given. No report given to [facility] due to line busy "All circuits busy" several attempts made.[facility] phone number [phone]. Patient transported by [facility] with all personal belongings. No distress noted at time of departure.
--- NOTE | 2019-06-21 18:13 | NUR ---
CALLED [facility] TO GIVE REPORT ON PHONE NUMBER [phone] LINE NOT WORKING "ALL CIRCUITS ARE BUSY AT THIS TIME" UNABLE TO GIVE REPORT AT THIS TIME.
--- NOTE | 2019-06-21 18:40 | NUR ---
SBAR GIVEN TO JOEL PETERS AT [facility]. ALL QUESTIONS ADDRESS. PHONE NUMBER [phone].
== END 2019-06-21 18:08 | DRG 52 ==
LOC: EDBD 14:12 → EDUNIT# 14:12 → ER 14:12 → OVERFLOW 14:13 → CENTRAL 23:20
PROVIDERS: ADMIT Nurse Practitioner; ATTEND Internal Medicine
DX: G92 Toxic encephalopathy (principal); D69.3 Immune thrombocytopenic purpura; E72.20 Disorder of urea cycle metabolism, unspecified; G20 Parkinson's disease; F02.80 Dementia in other diseases classified elsewhere, unspecified severity, without behavioral disturbance, psychotic disturbance, mood disturbance, and anxiety; E11.9 Type 2 diabetes mellitus without complications; B19.20 Unspecified viral hepatitis C without hepatic coma; I10 Essential (primary) hypertension; F32.9 Major depressive disorder, single episode, unspecified; J44.9 Chronic obstructive pulmonary disease, unspecified; G40.909 Epilepsy, unspecified, not intractable, without status epilepticus; F17.210 Nicotine dependence, cigarettes, uncomplicated; F41.9 Anxiety disorder, unspecified; R32 Unspecified urinary incontinence; Z80.3 Family history of malignant neoplasm of breast; Z83.3 Family history of diabetes mellitus; Z88.8 Allergy status to other drugs, medicaments and biological substances; Z79.899 Other long term (current) drug therapy; Z82.49 Family history of ischemic heart disease and other diseases of the circulatory system; Z90.49 Acquired absence of other specified parts of digestive tract; Y92.89 Other specified places as the place of occurrence of the external cause; T42.6X5A Adverse effect of other antiepileptic and sedative-hypnotic drugs, initial encounter
CPT/HCPCS: 36415; 70450; 71045; 80048; 80053; 80164; 80307; 80320; 81001; 82140; 82607; 83735; 84443; 84484; 85025; 86592; 86703; 86803; 87340; 93005; 94761; 95819; 96360; 96361; 97116; 97530; G0378